=== PATIENT | female | born 1980 | race Caucasian/White ===

== ENCOUNTER 2016-12-26 11:25 | Emergency (ER) | payer OTHER ==
[2016-12-26 12:27] LABS: % IMMATURE GRANULYOCYTES 0.9 % (0.0-1.1); ABSOLUTE IMMATURE GRANULOCYTES 0.06 10^3/uL (0.00-0.10); ADD DIFF? NO; ADD MORPH? NO; ADD SCAN? NO; ATYPICAL LYMPHOCYTE FLAG 20 (0-99); FRAGMENT RBC FLAG 0 (0-99); HEMATOCRIT 43.8 % (38.0-47.0); HEMOGLOBIN 14.9 g/dL (12.6-16.3); LEFT SHIFT FLG 0 (0-99); LIPEMIA HEMOLYSIS FLAG 90 (0-99); MEAN CELL HEMOGLOBIN 31.4 pg (27.9-34.1); MEAN CELL VOLUME 92.4 fL (81.5-99.8); MEAN PLATELET VOLUME 9.4 fL (8.7-11.7); PLATELET CLUMPS FLAG 0 (0-99); PLATELET COUNT 354 10^3/uL (150-400); RED BLOOD CELL COUNT 4.74 10^6/uL (4.18-5.33); RED CELL DISTRIBUTION WIDTH 12.8 % (11.5-15.2)
--- NOTE | 2016-12-26 12:36 | EDPHY ---
H & P Time Seen by Provider: 12/26/16 12:19 HPI/ROS: CHIEF COMPLAINT: Left lower quadrant pain, vaginal bleeding HISTORY OF PRESENT ILLNESS: 36-year-old female presents with left lower quadrant pain and vaginal bleeding. Onset of intermittent sharp and stabbing left lower quadrant pain yesterday. The pain is mild to moderate. No known alleviating or aggravating factors. Associated with onset of mild vaginal bleeding 1 hour ago. Last normal menstrual period was 2 weeks ago. No prior history of ovarian cysts. REVIEW OF SYSTEMS: Constitutional: No fever, no chills Eyes: No visual changes ENT: No sore throat Respiratory: No cough, no shortness of breath Cardiac: No chest pain Gastrointestinal: No nausea, no vomiting Genitourinary: No hematuria, no dysuria Musculoskeletal: No leg pain or swelling Skin: No rash Neurological: No headache, no weakness Psychiatric: No depression Past Medical/Surgical History: Cholecystectomy Paranoid thought disorder Social History: Single Smoking Status: Never smoked Physical Exam: General Appearance: Alert, very anxious Eyes: Pupils equal and round, no conjunctival pallor or injection ENT, Mouth: Mucous membranes moist Neck: Normal inspection Respiratory: Lungs are clear to auscultation Cardiovascular: Regular rate and rhythm Gastrointestinal: Abdomen is soft, left lower quadrant tenderness Neurological: A&O, nonfocal, normal gait Skin: Warm and dry, no rash Extremities: Nontender, no pedal edema Psychiatric: anxious Constitutional: Initial Vital Signs Temperature (C) 36.5 C 12/26/16 11:35 Heart Rate 60 12/26/16 11:35 Respiratory Rate 18 12/26/16 11:35 Blood Pressure 118/71 12/26/16 11:35 O2 Sat (%) 98 12/26/16 11:35 O2 Delivery Mode Room Air Allergies/Adverse Reactions: No Known Allergies Allergy (Verified 12/26/16 11:34) Home Medications: Medication Instructions Recorded Ibuprofen [Motrin (*)] 400 mg PO DAILY PRN 01/22/15 Thyroid [[place] Thyroid 60 MG (*)] 30 mg PO DAILY10 01/22/15 Bcp 12/26/16 Medical Decision Making - Diagnostics Imaging Results: Imaging Impressions Pelvic/Renal Ultrasound 12/26/16 12:33 Impression: Normal pelvic ultrasound. Results called and discussed with Dr. Sonia Goff, on December 26, 2016 at 1353 hours. ED Course/Re-evaluation: This patient presents with left lower quadrant pain, concerning for possible ectopic versus ovarian torsion. Stat test is negative. Stat pelvic ultrasound is also normal. There is no evidence of ectopic , ovarian torsion, appendicitis or ovarian cyst. Ultrasound results discussed with the patient. She is feeling better. Toradol 30 mg IV given prior to discharge. Abdominal pain precautions given. She will follow up with her primary care physician. Differential Diagnosis: Differential diagnosis includes though it is not limited to ectopic , ovarian cyst, ovarian torsion, PID, UTI, appendicitis. - Data Points Laboratory Results: Laboratory Results 12/26/16 12:11 12/26/16 12/26/16 12/26/16 12:11 12:11 12:02 WBC 6.80 10^3/uL 10^3/uL (3.80-9.50) RBC 4.74 10^6/uL 10^6/uL (4.18-5.33) Hgb 14.9 g/dL g/dL (12.6-16.3) Hct 43.8 % % (38.0-47.0) MCV 92.4 fL fL (81.5-99.8) MCH 31.4 pg pg (27.9-34.1) MCHC 34.0 g/dL g/dL (32.4-36.7) RDW 12.8 % % (11.5-15.2) Plt Count 354 10^3/uL 10^3/uL (150-400) MPV 9.4 fL fL (8.7-11.7) Neut % (Auto) 65.0 % % (39.3-74.2) Lymph % (Auto) 23.5 % % (15.0-45.0) [place] % (Auto) 9.6 % % (4.5-13.0) Eos % (Auto) 0.3 % L % (0.6-7.6) Baso % (Auto) 0.7 % % (0.3-1.7) Nucleat RBC Rel Count 0.0 % % (0.0-0.2) Absolute Neuts (auto) 4.42 10^3/uL 10^3/uL (1.70-6.50) Absolute Lymphs (auto) 1.60 10^3/uL 10^3/uL (1.00-3.00) Absolute Monos (auto) 0.65 10^3/uL 10^3/uL (0.30-0.80) Absolute Eos (auto) 0.02 10^3/uL L 10^3/uL (0.03-0.40) Absolute Basos (auto) 0.05 10^3/uL 10^3/uL (0.02-0.10) Absolute Nucleated RBC 0.00 10^3/uL 10^3/uL (0-0.01) Immature Gran % 0.9 % % (0.0-1.1) Immature Gran # 0.06 10^3/uL 10^3/uL (0.00-0.10) Beta HCG, Qual NEGATIVE Urine Color YELLOW Urine Appearance HAZY Urine pH 5.0 (5.0-7.5) Ur Specific [place] 1.005 (1.002-1.030) Urine Protein NEGATIVE (NEGATIVE) Urine Ketones NEGATIVE (NEGATIVE) Urine Blood 3+ H (NEGATIVE) Urine Nitrate NEGATIVE (NEGATIVE) Urine Bilirubin NEGATIVE (NEGATIVE) Urine Urobilinogen NEGATIVE EU EU (0.2-1.0) Ur Leukocyte Esterase NEGATIVE (NEGATIVE) Urine RBC 50-182 /hpf H /hpf (0-3) Urine WBC 1-3 /hpf /hpf (0-3) Ur Epithelial Cells TRACE /lpf /lpf (NONE-1+) Urine Glucose NEGATIVE (NEGATIVE) Medications Given: Discontinued Medications Ketorolac Tromethamine (Toradol) 30 mg IVP EDNOW ONE Stop: 12/26/16 14:06 Last Admin: 12/26/16 14:15 Dose: 30 mg Departure - Departure Disposition: Home, Routine, Self-Care Clinical Impression: Pelvic pain Condition: Good Instructions: Pelvic Pain in Women (ED) Additional Instructions: Ibuprofen 600 mg 3 times daily while the pain persists. Referrals: Kiana George MD [Primary Care Provider] - As per Instructions
[2016-12-26 13:10] LABS: COLOR YELLOW; LEUKOCYTE ESTERASE,URINE NEGATIVE (NEGATIVE); NITRITE,URINE NEGATIVE (NEGATIVE)
[2016-12-26 13:14] LABS: RBC,URINE 50-182 /hpf (0-3)
[2016-12-26 13:48] VITALS: RESP 20
[2016-12-26] MEDS ORDERED: KETOROLAC 30 MG/1 ML SDV IVP ONE (14:05)
[2016-12-26 14:20] VITALS: BP 97/51; PULSE 80; TEMP 97.9; O2SAT 96
== END 2016-12-26 14:24 | disposition home or self-care (01) ==
DX: R10.2 Pelvic and perineal pain (principal); Z90.49 Acquired absence of other specified parts of digestive tract
CPT/HCPCS: 96374; J1885

== ENCOUNTER 2017-02-10 06:09 | Emergency (ER) | payer OTHER ==
--- NOTE | 2017-02-10 06:33 | EDPHY ---
H & P Stated Complaint: abd pressure, egg retreival on saturday - Personal History LMP (Females 10-55): Over 28 Days Ago Current Tetanus/Diphtheria Vaccine: Yes Current Tetanus Diphtheria and Acellular Pertussis (TDAP): Yes Tetanus Vaccine Date: 2011 - Medical/Surgical History Hx Asthma: No Hx Chronic Respiratory Disease: No Hx Diabetes: No Hx Cardiac Disease: No Hx Renal Disease: No Hx Cirrhosis: No Hx Alcoholism: No Hx HIV/AIDS: No Hx Splenectomy or Spleen Trauma: No Other PMH: gall bladder removal - Social History Smoking Status: Never smoked HPI/ROS: Chief Complaint: Abdominal pain, shortness of breath HPI: 36-year-old woman who is 4 days post egg retrieval at [facility] in [place] by Dr. Guardado. Patient had 46 eggs removed, 32 of those were frozen. She is been getting increasingly distended since the procedure. Pain was worsening yesterday. Last night she started having significant difficulty breathing with shortness of breath in her left chest. Is describing it as long pressure. She spoke with her doctor at the [facility] and was told that she can either take pain medicine or they might have to draining the fluid. ROS: 10 point Review of Systems is negative except as noted in the HPI. PMH: Hypothyroidism Medications: Synthroid Allergies: No known drug allergies Social History: No smoking, no alcohol, no recreational drug use Family History: non-contributory Physical Exam: Gen: Awake, Alert, uncomfortable appearing HEENT: Nose: no rhinorrhea Eyes: PERRLA, EOMI Mouth: Moist mucosa Neck: Supple, no JVD Chest: nontender, lungs clear to auscultation Heart: S1, S2 normal, no murmur Abd: Distended, diffuse guarding Back: no CVA tenderness, no midline tenderness Ext: no edema, non-tender Skin: no rash Neuro: CN II-XII intact, Sensation grossly intact, Strength 5/5 in bilateral upper and lower extremities (Bryce Luna) Constitutional: Initial Vital Signs Temperature (C) 37.1 C 02/10/17 06:13 Heart Rate 100 02/10/17 06:13 Respiratory Rate 20 02/10/17 06:13 Blood Pressure 102/63 02/10/17 06:13 O2 Sat (%) 98 02/10/17 06:13 O2 Delivery Mode Room Air Allergies/Adverse Reactions: No Known Allergies Allergy (Verified 12/26/16 11:34) Home Medications: Medication Instructions Recorded Ibuprofen [Motrin (*)] 400 mg PO DAILY PRN 01/22/15 Thyroid [[place] Thyroid 60 MG (*)] 30 mg PO DAILY10 01/22/15 Bcp 12/26/16 Medical Decision Making - Diagnostics Imaging Results: Imaging Impressions Abdomen CT 02/10/17 07:17 Impression: 1. Large volume ascites in association with bowel wall enhancement multiple bowel loops most pronounced in the pelvis raises the possibility of peritonitis. 2. See above report for additional findings. Results called and discussed with Noé Randolph MD on 02/10/2017 at 9:21 Chest/Thorax CTA 02/10/17 07:17 Impression: 1. No evidence of pulmonary embolic disease. 2. Pleural effusions larger on the right. 3. See above report for additional findings. Results called and discussed with Noé Randolph MD on 02/10/2017 at 9:01 Abdomen Ultrasound 02/10/17 09:58 Impression: 1. Significant amount of ascites. 2. Significant amount of small bowel loops floating within the fluid, which actually makes this procedure higher risk than normal for an ultrasound-guided paracentesis, unless perihepatic region is targeted. 3. None of the visualized bowels are peristalsing, which is abnormal. I will discuss this with Dr. Noé Randolph. A phone call was made to the emergency room, but Dr. Randolph is with a patient at this time. I am awaiting a return phone call from Dr. Randolph. ED Course/Re-evaluation: Care transferred to Dr. Randolph pending lab results and imaging. (Bryce Luna) This patient was turned over to me at shift change. Her CBC has come back with a white blood cell count over 33,000. Believe she has a tender an acute abdomen. I have ordered an abdominal and chest CT scan because she is also complaining of left-sided chest pain and is at risk for pulmonary embolus. Study: CT of the chest abdomen and pelvis with IV contrast Indication: diffuse abdominal and chest pain Results: CT scan of the chest, abdomen, pelvis was obtained. The results of the study are mild sympathetic effusion in the chest. Significant and large amount of ascites throughout the abdomen with enhancing small bowel loops in the pelvis.. The study was read by the radiologist, Dr. Claudy Frazier. I viewed the images myself on the PACS system. Dr. Claudy Frazier does not think there is any evidence of perforation of viscus. There does not appear to be any abnormality of solid organ. This patient just had a ovarian retrieval procedure where a large amount of eggs were extracted. She was told to expect some ascites but this is been much more than she expected and much larger amount in much more pain much more difficulty breathing since she can't really expand her lungs well. Based on the CT findings I have asked Dr. Holbrook to consult. After further investigation it turns out that the ascites is expected can be up to 20 lb according to the patient and her physician. Dr. Holbrook did respond but we have decided to just perform a simple ultrasound-guided paracentesis for comfort for the patient which is what her OB doctor recommends. Procedures been ordered. This patient went to get her paracentesis and then she refused. I talked with Dr. Stacie Valles who was performing the procedure she had the ultrasound ready to go the patient was prepped and draped in the patient said I do not want the procedure. Just spoke to the patient again. The patient essentially has peritoneal signs no peristalsis in her bowels because her [place] [id number]. Although she does not look ill I cannot rule out peritonitis. I have encouraged her to at least be admitted to the hospital so we could further evaluate her. In addition her pain is excruciating she has not been able tolerated home. Patient seems willing to be admitted at this time she is not sure if she wants the procedure will re-consult Dr. Holbrook to see if he wants to do something under anesthesia. Spoke once again with Dr. Holbrook. He does not believe that this is a surgical issue. I then spoke with Dr. Guardado the application systems engineer who did the extraction. She says both than elevated white count, slight electrolyte abnormalities, and large amounts of ascites are expected with this procedure. Consequently she would either perform the paracentesis for comfort only or she would just give the patient pain meds and send her home. We are giving the patient the option. I am also happy to admit her for pain control. There is a significant amount of psychiatric overlay with this patient and she is having difficulty making decisions. After several long discussions with this patient I have offered her numerous options. Firstly, I have offered her admission for pain control. Secondly I have offered her another attempt at paracentesis. In addition, I have offered to increase her oral pain meds and sent her home. Had a long discussion with Dr. Guardado in all of presenting symptoms and lab abnormalities are expected with this procedure. The patient has opted to go home at this point she understands she can return immediately if there are any further problems. This patient is not infected. This patient is not toxic. (Noé Randolph) - Data Points Laboratory Results: Laboratory Results 02/10/17 06:50 02/10/17 06:50 02/10/17 02/10/17 02/10/17 12:25 06:50 06:50 WBC RBC Hgb Hct MCV MCH MCHC RDW Plt Count MPV Neut % (Auto) Lymph % (Auto) [place] % (Auto) Eos % (Auto) Baso % (Auto) Nucleat RBC Rel Count Absolute Neuts (auto) Absolute Lymphs (auto) Absolute Monos (auto) Absolute Eos (auto) Absolute Basos (auto) Absolute Nucleated RBC Immature Gran % Seg Neutrophils % Band Neutrophils % Lymphocytes % Monocytes % Immature Gran # Absolute Seg Neuts Absolute Band Neuts Absolute Lymphocytes Absolute Monocytes RBC/WBC/PLT Morphology Platelet Estimate Smear Review By PT INR APTT D-Dimer 3.51 ug/mLFEU H ug/mLFEU (0.00-0.50) Sodium 129 mEq/L L mEq/L (134-144) Potassium 4.7 mEq/L mEq/L (3.5-5.2) Chloride 98 mEq/L mEq/L (97-110) Carbon Dioxide 19 mEq/l L mEq/l (22-31) Anion Gap 12 mEq/L mEq/L (8-16) BUN 18 mg/dL mg/dL (7-23) Creatinine 1.2 mg/dL H mg/dL (0.6-1.0) Estimated GFR 51 Glucose 119 mg/dL H mg/dL (70-100) Calcium 9.2 mg/dL mg/dL (8.5-10.4) Urine Color Pending Urine Appearance Pending Urine pH Pending Ur Specific [place] Pending Urine Protein Pending Urine Ketones Pending Urine Blood Pending Urine Nitrate Pending Urine Bilirubin Pending Urine Urobilinogen Pending Ur Leukocyte Esterase Pending Urine RBC Pending Urine WBC Pending Ur Epithelial Cells Pending Urine Glucose Pending 02/10/17 02/10/17 06:50 06:48 WBC 33.01 10^3/uL H 10^3/uL (3.80-9.50) RBC 5.43 10^6/uL H 10^6/uL (4.18-5.33) Hgb 17.6 g/dL H g/dL (12.6-16.3) Hct 50.6 % H % (38.0-47.0) MCV 93.2 fL fL (81.5-99.8) MCH 32.4 pg pg (27.9-34.1) MCHC 34.8 g/dL g/dL (32.4-36.7) RDW 12.9 % % (11.5-15.2) Plt Count 368 10^3/uL 10^3/uL (150-400) MPV 9.9 fL fL (8.7-11.7) Neut % (Auto) Not Reported Lymph % (Auto) Not Reported [place] % (Auto) Not Reported Eos % (Auto) Not Reported Baso % (Auto) Not Reported Nucleat RBC Rel Count 0.0 % % (0.0-0.2) Absolute Neuts (auto) Not Reported Absolute Lymphs (auto) Not Reported Absolute Monos (auto) Not Reported Absolute Eos (auto) Not Reported Absolute Basos (auto) Not Reported Absolute Nucleated RBC 0.00 10^3/uL 10^3/uL (0-0.01) Immature Gran % Not Reported Seg Neutrophils % 85 % % Band Neutrophils % 1 % % Lymphocytes % 11 % % Monocytes % 3 % % Immature Gran # Not Reported Absolute Seg Neuts 28.06 10^/uL H 10^/uL (1.70-6.50) Absolute Band Neuts 0.33 10^3/uL 10^3/uL (0.00-0.70) Absolute Lymphocytes 3.63 10^3/uL H 10^3/uL (1.00-3.00) Absolute Monocytes 0.99 10^3/uL H 10^3/uL (0.30-0.80) RBC/WBC/PLT Morphology NORMAL (NORMAL) Platelet Estimate ADEQUATE (ADEQ) Smear Review By Pending PT 13.6 SEC SEC (12.0-15.0) INR 1.05 (0.83-1.16) APTT 26.9 SEC SEC (23.0-38.0) D-Dimer Sodium Potassium Chloride Carbon Dioxide Anion Gap BUN Creatinine Estimated GFR Glucose Calcium Urine Color Urine Appearance Urine pH Ur Specific [place] Urine Protein Urine Ketones Urine Blood Urine Nitrate Urine Bilirubin Urine Urobilinogen Ur Leukocyte Esterase Urine RBC Urine WBC Ur Epithelial Cells Urine Glucose Medications Given: Discontinued Medications Al Hydroxide/Mg Hydroxide (Maalox Susp) 30 ml PO ONCE ONE Stop: 02/10/17 08:44 Last Admin: 02/10/17 08:53 Dose: 30 ml Hydromorphone HCl (Dilaudid) 0.5 mg IVP EDNOW ONE Stop: 02/10/17 06:53 Last Admin: 02/10/17 06:56 Dose: 0.5 mg Hydromorphone HCl (Dilaudid) 0.5 mg IVP EDNOW ONE Stop: 02/10/17 09:32 Last Admin: 02/10/17 09:41 Dose: 0.5 mg Hyoscyamine Sulfate (Levsin, Hyomax-Sl) 0.25 mg PO ONCE ONE Stop: 02/10/17 08:44 Last Admin: 02/10/17 08:53 Dose: 0.25 mg Sodium Chloride (Ns) 1,000 mls @ 3,000 mls/hr IV ONCE ONE Stop: 02/10/17 07:14 Last Admin: 02/10/17 06:56 Dose: 1,000 mls Lidocaine (Lidocaine 2% Viscous) 15 ml PO ONCE ONE Stop: 02/10/17 08:44 Last Admin: 02/10/17 08:53 Dose: 15 ml Ondansetron HCl (Zofran) 4 mg IVP EDNOW ONE Stop: 02/10/17 06:55 Last Admin: 02/10/17 06:55 Dose: 4 mg Departure - Departure Disposition: Home, Routine, Self-Care Clinical Impression: Poorly controlled ascites Abdominal pain Qualifiers: Abdominal location: generalized Qualified Code(s): R10.84 - Generalized abdominal pain Condition: Good Instructions: Ascites (ED) Additional Instructions: Return here if your pain is not well controlled. Follow up with Dr. Guardado in the next 1-2 days. Referrals: Kiana George MD [Primary Care Provider] - As per Instructions
[2017-02-10] MEDS ORDERED: HYDROmorphONE/DILAUDID 1 MG/ML SYR ONE (06:34)
[2017-02-10] MEDS ORDERED: ONDANSETRON 4 MG/2 ML VIAL ONE (06:42)
[2017-02-10] MEDS ORDERED: HYDROmorphONE/DILAUDID 1 MG/ML SYR IVP ONE ×2 (06:52→09:31)
[2017-02-10] MEDS ORDERED: ONDANSETRON 4 MG/2 ML VIAL IVP ONE (06:54)
[2017-02-10] MEDS ORDERED: NS 1,000 ML IV ONE (06:55)
[2017-02-10 07:04] LABS: ADD DIFF? YES; ADD MORPH? NO; ATYPICAL LYMPHOCYTE FLAG 0 (0-99); FRAGMENT RBC FLAG 0 (0-99); HEMATOCRIT 50.6 % (38.0-47.0); HEMOGLOBIN 17.6 g/dL (12.6-16.3); LEFT SHIFT FLG 40 (0-99); LIPEMIA HEMOLYSIS FLAG 90 (0-99); MEAN CELL HEMOGLOBIN 32.4 pg (27.9-34.1); MEAN CELL HEMOGLOBIN CONCENTR. 34.8 g/dL (32.4-36.7); MEAN CELL VOLUME 93.2 fL (81.5-99.8); MEAN PLATELET VOLUME 9.9 fL (8.7-11.7); PLATELET CLUMPS FLAG 0 (0-99); PLATELET COUNT 368 10^3/uL (150-400); RED BLOOD CELL COUNT 5.43 10^6/uL (4.18-5.33); RED CELL DISTRIBUTION WIDTH 12.9 % (11.5-15.2)
[2017-02-10 07:07] LABS: ADD SCAN? NO
[2017-02-10] MEDS ORDERED: IOPAMIDOL (ISOVUE 370) 100 ML BTL IV ONE (07:24)
[2017-02-10 07:25] LABS: ANION GAP 12 mEq/L (8-16); CALCIUM 9.2 mg/dL (8.5-10.4); CARBON DIOXIDE 19 mEq/l (22-31); CHLORIDE 98 mEq/L (97-110); CREATININE 1.2 mg/dL (0.6-1.0); GLOMERULAR FILTRATION RATE 51; GLUCOSE 119 mg/dL (70-100); POTASSIUM 4.7 mEq/L (3.5-5.2); SODIUM 129 mEq/L (134-144)
[2017-02-10 07:40] LABS: PLATELET ESTIMATE ADEQUATE (ADEQ)
[2017-02-10] MEDS ORDERED: MAG HYDROX/AL HYDROX/SIMETH 30 ML UDCUP PO ONE (08:43)
[2017-02-10] MEDS ORDERED: LIDOCAINE 2% VISCOUS 15 ML UDCUP PO ONE (08:43)
[2017-02-10] MEDS ORDERED: HYOSCYAMINE SULFATE 0.125 MG TAB PO ONE (08:43)
[2017-02-10] MEDS ORDERED: LIDOCAINE 1% 300 MG/30 ML SDV ONE (10:18)
[2017-02-10 10:39] LABS: APTT 26.9 SEC (23.0-38.0); INR 1.05 (0.83-1.16); PROTIME(PATIENT) 13.6 SEC (12.0-15.0)
[2017-02-10 11:29] VITALS: RESP 16
[2017-02-10 12:36] VITALS: BP 110/76; PULSE 73; TEMP 97.9; O2SAT 99
== END 2017-02-10 12:48 | disposition home or self-care (01) ==
DX: R18.8 Other ascites (principal)
CPT/HCPCS: 96374; J1170; J2405; Q9967

== ENCOUNTER 2017-02-11 11:07 | Observation (INO) | payer OTHER ==
--- NOTE | 2017-02-11 12:12 | EDPHY ---
H & P Stated Complaint: fluid in abd, " fluid retention." with SOA, seen here yesterday for same HPI/ROS: HPI CHIEF COMPLAINT: Abdominal distention, fluid in abdomen HISTORY OF PRESENT ILLNESS: This patient 36-year-old female, significant past medical history for recent ache retrieval and was recently here in the emergency room yesterday on February 10 with a large amount volume ascites offered paracentesis and offered hospital admission however she declined. She was going to get a therapeutic paracentesis for relief of her abdominal distention and fluid. However right as the procedure was going to start she declined the procedure. She declined hospitalization went home. She now presents back to the emergency room, with worsening abdominal distention. She does complain of abdominal pain diffusely. However on exam she does not have any peritoneal signs and she appears well. She denies nausea vomiting denies fever. Denies chest pain or shortness of breath. She did have shortness of breath yesterday however her shortness of breath tells me she has improved. I did review this patient's recent ER visit extensive workup for shortness of breath and abdominal distention including multiple CT scans and ultrasound. Also reviewed that this patient was going to get a paracentesis however declined and wanted to go home. Declined hospital admission. Past Medical History: Psychosis, thyroid disease, paranoia. Past Surgical History: Recent egg retrieval 46 eggs retrieved and 32 frozen. Social History: Denies daily use of drugs alcohol tobacco products Family History: Noncontributory ROS REVIEW OF SYSTEMS: A comprehensive 10 point review of systems is otherwise negative aside from elements mentioned in the history of present illness. Exam Constitutional triage nursing summary reviewed, vital signs reviewed, awake/ alert. Eyes normal conjunctivae and sclera, EOMI, PERRLA. HENT normal inspection, atraumatic, moist mucus membranes, no epistaxis, neck supple/ no meningismus, no raccoon eyes. Respiratory clear to auscultation bilaterally, normal breath sounds, no respiratory distress, no wheezing. Cardiovascular rate normal, regular rhythm, no murmur, no edema, distal pulses normal. Gastrointestinal abdomen is distended, positive fluid wave, mild tenderness palpation, no guarding or peritoneal signs. Genitourinary no CVA tenderness. Musculoskeletal no midline vertebral tenderness, full range of motion, no calf swelling, no tenderness of extremities, no meningismus, good pulses, neurovascularly intact. Skin pink, warm, & dry, no rash, skin atraumatic. Neurologic awake, alert and oriented x 3, AAOx3, moves all 4 extremities equally, motor intact, sensory intact, CN II-XII intact, normal cerebellar, normal vision, normal speech. Psychiatric normal mood/affect. Heme/Lymph/Immune no lymphadenopathy. Differential Diagnosis: Includes but is not limited to in a particular order large volume ascites from recent egg retrieval, SBP. Medical Decision Making: Plan for this patient I did review her recent ER visit an extensive workup, she is requesting paracentesis here in the emergency room. I will touch base with Interventional Radiology for this. Also will touch base with Dr. Guardado her fertility specialist at [facility]. I will give her IV fluids gentle IV hydration, IV Dilaudid for acute pain control IV Zofran for nausea. Check basic blood work. Re-evaluation: 1316: Spoke with Dr. Guardado with [facility], agrees a paracentesis. Recommends only 2.5 L removed. Recommends checking electrolytes. Does tell me that she should have leukocytosis high as this is expected. She also tells me she has been trying to get a hold this patient for follow-up care over she never answer the phone and does not have a voice mail. She wants me to remind the patient to follow up with them this week. Recommends checking electrolytes as they get low Na, High K with egg retrieval. Does tell me that this amount of ascites expected after egg retrieval. 1416: This patient is hemodynamically stable at this time. Plan for paracentesis. Also plan for admission due to hyponatremia. Sodium noted to be 129 strike currently [address] Echeverria who agrees to admit this patient reason for admission hyponatremia. Patient will 1 have a paracentesis by Dr. Prince with Interventional Radiology and then be admitted to the floor for hyponatremia. Source: Patient - Personal History LMP (Females 10-55): Over 28 Days Ago Current Tetanus/Diphtheria Vaccine: Yes Current Tetanus Diphtheria and Acellular Pertussis (TDAP): Yes Tetanus Vaccine Date: 2011 - Medical/Surgical History Hx Asthma: No Hx Chronic Respiratory Disease: No Hx Diabetes: No Hx Cardiac Disease: No Hx Renal Disease: No Hx Cirrhosis: No Hx Alcoholism: No Hx HIV/AIDS: No Hx Splenectomy or Spleen Trauma: No Other PMH: psh:gall bladder removal, dental. pmh: ROJAS - Social History Smoking Status: Never smoked Constitutional: Initial Vital Signs Temperature (C) 36.3 C 02/11/17 11:15 Heart Rate 75 02/11/17 11:15 Respiratory Rate 16 02/11/17 11:15 Blood Pressure 144/105 H 02/11/17 11:15 O2 Sat (%) 98 02/11/17 11:15 O2 Delivery Mode Room Air Allergies/Adverse Reactions: No Known Allergies Allergy (Verified 12/26/16 11:34) Home Medications: Medication Instructions Recorded Ibuprofen [Motrin (*)] 400 mg PO DAILY PRN 01/22/15 Thyroid [Omega Thyroid 60 MG (*)] 30 mg PO DAILY10 01/22/15 Bcp 12/26/16 HYDROmorphone HCL [Dilaudid 2 mg 2 mg PO Q4-6PRN PRN #14 tab 02/10/17 (*)] Ondansetron Odt [Zofran Odt 4 mg 4 mg PO Q4 PRN #10 tab 02/10/17 (RX)] Medical Decision Making - Data Points Laboratory Results: Laboratory Results 02/11/17 13:00 02/11/17 13:00 02/11/17 02/11/17 13:00 13:00 WBC 27.37 10^3/uL H 10^3/uL (3.80-9.50) RBC 5.04 10^6/uL 10^6/uL (4.18-5.33) Hgb 16.2 g/dL g/dL (12.6-16.3) Hct 47.2 % H % (38.0-47.0) MCV 93.7 fL fL (81.5-99.8) MCH 32.1 pg pg (27.9-34.1) MCHC 34.3 g/dL g/dL (32.4-36.7) RDW 12.8 % % (11.5-15.2) Plt Count 347 10^3/uL 10^3/uL (150-400) MPV 9.7 fL fL (8.7-11.7) Neut % (Auto) Not Reported Lymph % (Auto) Not Reported [place] % (Auto) Not Reported Eos % (Auto) Not Reported Baso % (Auto) Not Reported Nucleat RBC Rel Count 0.0 % % (0.0-0.2) Absolute Neuts (auto) Not Reported Absolute Lymphs (auto) Not Reported Absolute Monos (auto) Not Reported Absolute Eos (auto) Not Reported Absolute Basos (auto) Not Reported Absolute Nucleated RBC 0.00 10^3/uL 10^3/uL (0-0.01) Immature Gran % Not Reported Immature Gran # Not Reported Platelet Estimate Pending Sodium 126 mEq/L L mEq/L (134-144) Potassium 5.2 mEq/L mEq/L (3.5-5.2) Chloride 99 mEq/L mEq/L (97-110) Carbon Dioxide 22 mEq/l mEq/l (22-31) Anion Gap 5 mEq/L L mEq/L (8-16) BUN 19 mg/dL mg/dL (7-23) Creatinine 1.1 mg/dL H mg/dL (0.6-1.0) Estimated GFR 57 Glucose 77 mg/dL mg/dL (70-100) Calcium 8.5 mg/dL mg/dL (8.5-10.4) Medications Given: Discontinued Medications Hydromorphone HCl (Dilaudid) 0.5 mg IVP EDNOW ONE Stop: 02/11/17 12:27 Last Admin: 02/11/17 13:05 Dose: 0.5 mg Sodium Chloride (Ns) 1,000 mls @ 0 mls/hr IV ONCE ONE PRN Reason: Wide Open Stop: 02/11/17 12:27 Last Admin: 02/11/17 13:00 Dose: 1,000 mls Ondansetron HCl (Zofran) 4 mg IVP EDNOW ONE Stop: 02/11/17 12:27 Last Admin: 02/11/17 13:00 Dose: 4 mg Departure - Departure Disposition: Home, Routine, Self-Care Clinical Impression: Hyponatremia Ascites Qualifiers: Ascites type: other type Qualified Code(s): R18.8 - Other ascites Condition: Good Referrals: Kiana George MD [Primary Care Provider] - As per Instructions
[2017-02-11] MEDS ORDERED: ONDANSETRON 4 MG/2 ML VIAL IVP ONE (12:26)
[2017-02-11] MEDS ORDERED: HYDROmorphONE/DILAUDID 1 MG/ML SYR IVP ONE (12:26)
[2017-02-11] MEDS ORDERED: NS 1,000 ML IV ONE (12:26)
[2017-02-11 13:33] LABS: ANION GAP 5 mEq/L (8-16); CALCIUM 8.5 mg/dL (8.5-10.4); CARBON DIOXIDE 22 mEq/l (22-31); CHLORIDE 99 mEq/L (97-110); CREATININE 1.1 mg/dL (0.6-1.0); GLOMERULAR FILTRATION RATE 57; GLUCOSE 77 mg/dL (70-100); POTASSIUM 5.2 mEq/L (3.5-5.2); SODIUM 126 mEq/L (134-144)
[2017-02-11] MEDS ORDERED: LIDOCAINE 1% 300 MG/30 ML SDV ONE (15:16)
[2017-02-11 16:48] LABS: ADD DIFF? YES; ADD MORPH? NO; ADD SCAN? NO; ATYPICAL LYMPHOCYTE FLAG 0 (0-99); FRAGMENT RBC FLAG 0 (0-99); LEFT SHIFT FLG 40 (0-99); LIPEMIA HEMOLYSIS FLAG 90 (0-99); MEAN CELL HEMOGLOBIN 32.1 pg (27.9-34.1); MEAN CELL HEMOGLOBIN CONCENTR. 34.1 g/dL (32.4-36.7); MEAN CELL VOLUME 94.2 fL (81.5-99.8); MEAN PLATELET VOLUME 9.9 fL (8.7-11.7); PLATELET CLUMPS FLAG 10 (0-99); PLATELET COUNT 314 10^3/uL (150-400); RED BLOOD CELL COUNT 4.67 10^6/uL (4.18-5.33); RED CELL DISTRIBUTION WIDTH 12.9 % (11.5-15.2)
[2017-02-11 16:59] LABS: GLUCOSE, PERITONEAL FLUID 93 mg/dL (55-113)
[2017-02-11 17:00] LABS: LD, PERITONEAL FLUID 219 IU/L
[2017-02-11] MEDS ORDERED: NS 1,000 ML IV SCH (17:30)
[2017-02-11 17:34] LABS: PLATELET ESTIMATE ADEQUATE (ADEQ)
[2017-02-11] MEDS ORDERED: ONDANSETRON 4 MG/2 ML VIAL IVP PRN (17:38)
--- NOTE | 2017-02-11 18:38 | GHP ---
[f rep st] HISTORY AND PHYSICAL DATE OF ADMISSION: 02/11/2017 CHIEF COMPLAINT: Abdominal distention and shortness of breath. HISTORY: The patient is a 36-year-old female, who is 5 days status post egg retrieval at [facility] in [place] with Dr. Guardado. Forty-six eggs were harvested. She presented to [facility] emergency room yesterday with increasing abdominal distention and pain and was found to have ascit es. She has shortness of breath. The case was discussed with her fertility specialist, Dr. Guardado, who felt all of this was a known complication of this procedure including the ascites, leukocytosis and electrolyte abnormalities. Paracentesis was recommended but she refused it yesterday and went h ome. She now re-presents to the hospital today with ongoing symptoms. She has abdominal distention with pain and shortness of breath. She is pushing water, drinking 6-8 glasses of water per day as advised by Dr. Guardado. She is now status post paracentesis. She went straight to radiology from the ER. She feels much better already and shortness of breath is resolved. There has been no fever. PAST MEDICAL HISTORY: 1. Hypothyroidism. 2. Infertility. 3. Previous paranoia and psychosis. PAST SURGICAL HISTORY: Cholecystectomy. MEDICATIONS: Please see computer record for full detailed list. ALLERGIES: No known drug allergies. SOCIAL HISTORY: No smoking. No alcohol. She lives with her partner, they are currently trying to conceive. REVIEW OF SYSTEMS: Complete review of systems obtained. Review of systems negative on constitution al, HEENT, GI, pulmonary, cardiovascular, , hematology, skin, musculoskeletal, endocrine, psychiat radha except for positives/negatives as listed in HPI. FAMILY HISTORY: Reviewed and noncontributory to presenting complaint. PHYSICAL EXAMINATION: GENERAL: Well-developed, well-nourished female in no acute distress. VITAL SIGNS: Temperature is 36.3, pulse 86, blood pressure 92/57, saturating 93% on room air. HEENT: No rmal conjunctivae. Pupils react to light. ENT: Normal ears and nose. Hearing intact. Normal luc th. Oropharynx moist. NECK: Trachea midline. No thyromegaly. CHEST: Normal respiratory effort. LUNGS: Clear to auscultation bilaterally. CARDIOVASCULAR: Regular rhythm. EXTREMITIES: No low er extremity edema. ABDOMEN: Soft. No tense ascites status post paracentesis. Diffuse tender to palpation. No hepatosplenomegaly. SKIN: Warm, dry, intact. No rash. MUSCULOSKELETAL: No cyanos is or clubbing. Strength 5/5 upper and lower extremities. NEURO: Cranial nerves intact. Normal s ensation to light touch. PSYCH: Alert and oriented x3. Normal mood and affect. Normal judgment. Normal insight. Normal memory. LABORATORY DATA: White count 22.67, hematocrit 44, platelets 314. Sodium 126, potassium 5.2, chlor sirisha 99, bicarb 22, BUN 5, creatinine 1.1, glucose 77. A CT scan done yesterday showed large volume ascites. Findings consistent with possible peritonitis . Bilateral pleural effusions, larger on the right than the left. No pulmonary embolus. This case was discussed with Dr. Islas, emergency room provider. He did arrange for paracentesis w hich was done from the ER. ASSESSMENT AND PLAN: 1. Ascites. Status post egg retrieval, status post paracentesis. Her ascitic fluid studies are no w coming back and are consistent with a possible peritonitis. She has 914 white cells with 93% neut rophils. The fluid was red and cloudy. I will treat her with IV cefotaxime but I would discuss wit h Dr. Guardado again in the morning whether not this can all be anticipated after this procedure and wh ether or not these findings are outside of the realm of normal. Will insure that the fluid is sent off for culture. 2. Hyponatremia. She has been pushing water 8 glasses per day. I have advised her instead to rest rict fluid. We will check her urine osms and urine sodium. We will check a morning TSH and cortiso l. 3. Bilateral pleural effusions. This is clearly coming from her ascites. Her shortness of breath is now improved after paracentesis. CTA has been done and negative for PE. 4. Hypothyroidism. Will continue her [place] Thyroid. Check TSH in the morning. CODE STATUS: Full. ADMISSION STATUS: Will admit to observation. Depending on clinical progress, it will determine the length of admission necessary. DVT prophylaxis. She is low risk. She will be ambulated early. /[id number]/MODL
[2017-02-11] MEDS: cefTRIAXone 2 GM in D5W 50 ML IV SCH (19:06)
[2017-02-11] MEDS: HYDROmorphONE/DILAUDID 2 MG TAB PO PRN (19:21)
[2017-02-11] MEDS ORDERED: *PHM DO NOT USE-CEFOTAXIME 40 MG/ML IV NEWBORN SYR IV SCH (22:00)
[2017-02-12 05:46] LABS: ADD DIFF? YES; ADD MORPH? NO; ADD SCAN? NO; ATYPICAL LYMPHOCYTE FLAG 0 (0-99); FRAGMENT RBC FLAG 0 (0-99); HEMATOCRIT 39.4 % (38.0-47.0); HEMOGLOBIN 13.6 g/dL (12.6-16.3); LEFT SHIFT FLG 40 (0-99); LIPEMIA HEMOLYSIS FLAG 90 (0-99); MEAN CELL HEMOGLOBIN 32.4 pg (27.9-34.1); MEAN CELL HEMOGLOBIN CONCENTR. 34.5 g/dL (32.4-36.7); MEAN CELL VOLUME 93.8 fL (81.5-99.8); MEAN PLATELET VOLUME 9.5 fL (8.7-11.7); PLATELET CLUMPS FLAG 0 (0-99); PLATELET COUNT 298 10^3/uL (150-400); RED CELL DISTRIBUTION WIDTH 13.1 % (11.5-15.2)
[2017-02-12 06:17] LABS: ANION GAP 1 mEq/L (8-16); CALCIUM 7.9 mg/dL (8.5-10.4); CARBON DIOXIDE 21 mEq/l (22-31); CHLORIDE 104 mEq/L (97-110); CREATININE 0.9 mg/dL (0.6-1.0); GLOMERULAR FILTRATION RATE > 60; GLUCOSE 73 mg/dL (70-100); SODIUM 126 mEq/L (134-144)
[2017-02-12 06:18] LABS: PLATELET ESTIMATE ADEQUATE (ADEQ)
[2017-02-12 06:43] LABS: CORTISOL-AM 10.6 ug/dL (4.5-22.7)
[2017-02-12] MEDS: cefTRIAXone 2 GM in D5W 50 ML IV SCH (09:06)
[2017-02-12] MEDS: HYDROmorphONE/DILAUDID 2 MG TAB PO PRN ×2 (09:07→19:21)
[2017-02-12] MEDS: ACETAMINOPHEN 325 MG TAB PO PRN (10:47)
[2017-02-12] MEDS: THYROID 60 MG TAB PO SCH (10:47)
--- NOTE | 2017-02-12 14:55 | HOSPPROG ---
Hospitalist Progress Note Assessment/Plan: patient is a 36 y/o female who is s/p egg retrieval. She developed abdominal pain and distention and came to the ER for futher evaluation. *abdominal distention/ascites s/p paracentesis w 2400 ml of fluid removed *concern for peritonitis on 2 gm Ceftriaxone w elevated wbc count, asked ID to get involved *hyponatremia had been drinking quite a bit of H20 urine Na 32, urine osmol 118 TSH and cortisol ok will recheck in a.m. encouraged more solute intake *Plan: appreciate Dr Michael. She will need another midnight stay to evaluate labs and micro in the morning/ if improved, can likely be dc. Subjective: Lena is feeling fine/ has some c/o abd fullness. Objective: Vital Signs Temp Pulse Resp BP Pulse Ox 37.0 C 75 16 105/52 L 92 02/12/17 11:49 02/12/17 11:49 02/12/17 11:49 02/12/17 11:49 02/12/17 11:49 Microbiology 02/11/17 15:50 Gram Stain - Final Peritoneal Fluid - Other Laboratory Results 02/12/17 05:11 02/12/17 05:11 02/11/17 02/12/17 02/13/17 05:59 05:59 05:59 Intake Total 1700 Balance 1700 - Physical Exam Constitutional: no apparent distress, appears nourished, not in pain Eyes: PERRL Ears, Nose, Mouth, Throat: hearing normal Cardiovascular: regular rate and rhythym Respiratory: no respiratory distress Gastrointestinal: normoactive bowel sounds, distension (slight) Skin: warm, normal color Musculoskeletal: no muscle tenderness Neurologic: AAOx3 Psychiatric: interacting appropriately, not anxious ICD10 Worksheet Patient Problems: Problems Problem Status Onset Ascites Acute Hyponatremia Acute Psychosis Acute 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
--- NOTE | 2017-02-12 15:07 | GCON ---
[f rep st] CONSULTATION INFECTIOUS DISEASE CONSULTATION DATE OF CONSULTATION: 02/12/2017 REFERRING PHYSICIAN: Jocelyn Boland NP REASON FOR CONSULTATION: Possible peritonitis after oocyte retrieval procedure. CHIEF COMPLAINT: Abdominal pain. HISTORY OF PRESENT ILLNESS: This is a 36-year-old, female with a past medical history sig nificant for hypothyroidism, peritonitis, psychosis who underwent a recent oocyte retrieval procedur e at the [facility] in [place] on February 06, 2017. She states that after that she was instructed to take doxycycline 100 mg once a day for 4 days which would have completed on ay. Progressively, after the procedure, she started having increasing abdominal pain and distention . She also is starting to have some shortness of breath. She came into the ER on February 10 due to ab dominal pain and, at that time, was noted to have a white blood cell count 33,000. She was afebrile at the time. She did have an abdominal CT done at the time which showed large volume ascites in as sociation with bowel wall enhancement with multiple bowel loops suggesting possibility of peritoniti s, no free air, no perforated viscus noted. The patient also had a CT of the chest done which showe d no evidence of a pulmonary emboli. She had pleural effusions noted, larger on the right. The pat ient refused to have paracentesis and went home but came back the next day due to increasing abdomin al pain. Paracentesis was done, and 2400 mL of serosanguineous ascites was removed and sent for wilton lysis and culture. The fluid appeared cloudy red with 914 WBCs, 40,315 peritoneal RBCs, 93% neutrop hils with an LDH of 219 and peritoneal amylase of less than 30. Paracentesis showed no organisms, a nd cultures are currently pending. Patient was started on ceftriaxone. When she came back in for a dmission, her white blood cell count had already come down from 32,000 to 22,000 without any additio nal antibiotics that could be noted. Today it is already down to 17.9 after 1 dose of ceftriaxone. Patient is feeling better today although does continue to have some abdominal distention and some p ain, predominantly left greater than right. She is having some mild shortness of breath but also si gnificantly it is improved compared to the past 2 days. Infectious Disease is now consulted for fur ther evaluation and opinion. REVIEW OF SYSTEMS: GENERAL: Had some low-grade fevers and shaking chills over the past couple of d ays. HEAD: No headaches. EYES: No change in vision. ENT: No sore throat, difficulty swallowing , ear pain, or ear drainage. CARDIOVASCULAR: Denies any chest pain or rapid heart beat. RESPIRATO RY: Some shortness of breath and pain with taking a deep breath. No cough or sputum production. A BDOMEN: Abdominal distention with pain. No vomiting, no diarrhea. : No dysuria or hematuria. BACK: No flank pain or back pain. EXTREMITIES: No lower extremity edema. MUSCULOSKELETAL: No desmond int pains or muscle pain. SKIN: No other rashes or open wounds. Rest of 10-point review of system essentially negative, except for above. PAST MEDICAL HISTORY: Significant for hypothyroidism, infertility, paranoia, psychosis. PAST SURGICAL HISTORY: Significant for cholecystectomy laparoscopically, wisdom teeth removal. ALLERGIES: No known drug allergies. SOCIAL HISTORY: She is a nonsmoker, nondrinker. Lives with her partner. She has no pets, has not traveled outside the country recently. FAMILY HISTORY: Significant for mother having hypothyroidism. PHYSICAL EXAMINATION: VITAL SIGNS: Temperature current 37.0, pulse is 75, blood pressure 105/52, s aturations are 92% on room air. GENERAL: Patient is resting in bed sitting up in no acute respirat ory distress. Awake, alert, and oriented x3. HEENT. Head is normocephalic, atraumatic. Eyes: Pu pils equal, round, reactive to light. No conjunctival injection. No petechiae noted. Oropharynx i s clear. There is no posterior erythema or thrush. CARDIOVASCULAR: S1, S2. Regular rate and rhyt hm. No obvious murmurs appreciated. RESPIRATORY: Coarse breath sounds at the bases bilaterally. ABDOMEN: Positive bowel sounds present. Abdomen is slightly distended. There is some discomfort p articularly in the lower quadrants, left greater than right. Paracentesis site noted in the right l ower quadrant. LOWER EXTREMITIES: Without edema. MUSCULOSKELETAL: No obvious joint effusions or pain on palpation of the joints. SKIN: No obvious rashes or wounds. LABORATORIES: White blood cell count is 17.9, hemoglobin 13.6, platelets are 298, neutrophils 66%, bands are 2%. D-dimer 3.5. INR 1.0. Sodium 126, potassium 5.0, chloride 104, bicarb is 21, BUN is 16, creatinine 0.9, down from 1.2. Beta HCG done 2 months ago was negative. Cortisol a.m. 10.6. TSH 0.76. Urinalysis unremarkable. Urine RBCs 1-3. There was 3+ blood, and urine RBCs are 50 to 1 82. Peritoneal fluid as stated above. Microbiology as stated above. IMAGING: Results have all been reviewed by me and are stated above. ASSESSMENT: Status post recent oocyte retrieval procedure now with either infectious peritonitis ve rsus ovarian hyperstimulation syndrome. PLAN: White blood cell count is starting to come down after 1 dose of antibiotics. Patient is curr ently on ceftriaxone which I will continue for now. All cultures are in progress. So far, no organ isms on the Gram stain, and cultures are pending. Patient was previously on doxycycline up until was her last dose. Peritoneal cultures are currently pending. Clinically patient has improv ed after paracentesis. We will continue to monitor her white blood cell count as well as her cultur es and make decisions on her antibiotics thereafter. The above plan was explained to the patient. Lab results and culture results were reviewed with the patient as well. Thank you very much for providing this opportunity to care for your patient in consultation. /[id number]/MODL
[2017-02-13] MEDS: ACETAMINOPHEN 325 MG TAB PO PRN (05:04)
[2017-02-13 05:56] LABS: ADD DIFF? YES; ADD MORPH? NO; ADD SCAN? NO; ATYPICAL LYMPHOCYTE FLAG 0 (0-99); FRAGMENT RBC FLAG 0 (0-99); HEMOGLOBIN 12.8 g/dL (12.6-16.3); LEFT SHIFT FLG 40 (0-99); LIPEMIA HEMOLYSIS FLAG 90 (0-99); MEAN CELL HEMOGLOBIN 32.7 pg (27.9-34.1); MEAN CELL HEMOGLOBIN CONCENTR. 34.6 g/dL (32.4-36.7); MEAN CELL VOLUME 94.4 fL (81.5-99.8); MEAN PLATELET VOLUME 9.6 fL (8.7-11.7); PLATELET CLUMPS FLAG 30 (0-99); PLATELET COUNT 330 10^3/uL (150-400); RED BLOOD CELL COUNT 3.92 10^6/uL (4.18-5.33); RED CELL DISTRIBUTION WIDTH 12.9 % (11.5-15.2)
[2017-02-13 06:19] LABS: PLATELET ESTIMATE ADEQUATE (ADEQ)
[2017-02-13 06:22] LABS: ANION GAP 5 mEq/L (8-16); CALCIUM 8.1 mg/dL (8.5-10.4); CARBON DIOXIDE 22 mEq/l (22-31); CHLORIDE 103 mEq/L (97-110); CREATININE 0.8 mg/dL (0.6-1.0); GLOMERULAR FILTRATION RATE > 60; GLUCOSE 71 mg/dL (70-100); POTASSIUM 4.4 mEq/L (3.5-5.2); SODIUM 130 mEq/L (134-144)
[2017-02-13 07:49] VITALS: BP 107/56; PULSE 74; RESP 16; TEMP 98.3; O2SAT 96
[2017-02-13] MEDS: THYROID 60 MG TAB PO SCH (09:26)
--- NOTE | 2017-02-13 13:14 | PCMIDPN ---
Assessment/Plan: Likely ovarian hyperstimulation syndrome s/p therapeutic paracentesis with removal of 2.4 L of ascitic fluid with symptomatic improvement. Pleural effusion , ascites, leukocytosis, ARF/hypoNa and abdominal pain can all be apart of OHSS. Corrected peritoneal WBC ~850, majority of neutrophils, slight elevation. Cannot calculated SAAG, no peripheral blood albumin. Doubt peritonitis, but difficult to completely exclude as patient received antibiotics prior to peritoneal aspiration. Nonetheless, Peritonitis is an uncommon complication associated with OHSS and oocyte harvesting. Rec: monitoring off antibiotics microbiology 02/11 peritoneal cx: NGTD, gram stain negative Time 15 min >50% time spent with educational and counseling and coordination of care with hospitalists Subjective: feeling much better eating without difficulty Objective: Vital Signs Temp Pulse Resp BP Pulse Ox 36.8 C 74 16 107/56 L 96 02/13/17 07:48 02/13/17 07:48 02/13/17 07:48 02/13/17 07:48 02/13/17 07:48 Microbiology 02/11/17 15:50 Gram Stain - Final Peritoneal Fluid - Other Laboratory Results 02/13/17 05:15 02/13/17 05:15 02/12/17 02/13/17 02/14/17 05:59 05:59 05:59 Intake Total 1700 1000 440 Output Total 2200 Balance 1700 -1200 440 - Physical Exam General Appearance: alert, no apparent distress Respiratory: No accessory muscle use Neuro/Psych: alert, normal mood/affect ICD10 Worksheet Patient Problems: Problems Problem Status Onset Ascites Acute Hyponatremia Acute Psychosis Acute 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
--- NOTE | 2017-02-13 15:10 | GDS ---
[f rep st] DISCHARGE SUMMARY DISCHARGE DIAGNOSES: 1. Likely ovarian hyperstimulation syndrome. 2. Hyponatremia. STUDIES AND PROCEDURES: Paracentesis. CONSULTATIONS: Infectious Disease. PHYSICAL EXAMINATION: GENERAL: The patient is alert. VITAL SIGNS: Afebrile at 36.8. Pulse is 74 . Respiratory rate is 16. Blood pressure is 107/56. She is saturating 96% on room air. I have se en and evaluated the patient on the day of discharge. HOSPITAL COURSE: The patient is a 36-year-old female who presented to the emergency room with compl aints of abdominal pain. She was evaluated and diagnosed with likely ovarian hyperstimulation syndr ome. During this hospitalization, a paracentesis was performed. The patient's symptoms have signif icantly improved. She was treated with Rocephin for potential peritonitis during this hospitalizati on. It is unlikely the patient is suffering from peritonitis and will remain off antibiotics at the time of disposition. Her condition has significantly improved, and she will follow up outside the hospital with her prima doctor. There are no pending studies. I have discussed the patient's disposition with Dr. Jaja Wilcox of Infectious Disease. DISCHARGE MEDICATIONS: Please refer to EMR form. I have not adjusted the patient's previously pres cribed home medications. I have spent greater than 35 minutes in the care, coordination, and management of the patient's disp osition. /[id number]/MODL
== END 2017-02-13 13:35 | disposition home or self-care (01) ==
LOC: INTOOBSV 14:15 → F3E 16:38
PROVIDERS: ADMIT Internal Medicine; ATTEND Internal Medicine
DX: E28.8 Other ovarian dysfunction (principal); E87.1 Hypo-osmolality and hyponatremia; R18.8 Other ascites; J90 Pleural effusion, not elsewhere classified; N97.9 Female infertility, unspecified; E03.9 Hypothyroidism, unspecified; Z86.59 Personal history of other mental and behavioral disorders; Z09 Encounter for follow-up examination after completed treatment for conditions other than malignant neoplasm
CPT/HCPCS: 49083; 96361; 96374; 96375; 99285; G0378; J0696; J1170; J2405

== ENCOUNTER 2017-06-19 23:12 | Emergency (ER) | payer OTHER ==
--- NOTE | 2017-06-20 00:13 | EDPHY ---
H & P Stated Complaint: ETOH and fall with L thumb deformity and L ankle pain/swelling HPI/ROS: HPI CHIEF COMPLAINT: Alcohol intoxication, fall, left thumb injury, left ankle injury HISTORY OF PRESENT ILLNESS: This patient very pleasant 36-year-old female, she presents emergency room after she states she had 3-4 glasses of wine this evening she got intoxicated she states she was sitting on a bar stool in her left leg was numb when she went to get up she fell. She landed with an outstretched hand of her left hand and sustained injury to her left thumb. Additionally she sustained an injury to her left lateral ankle. She presents emergency room by EMS. She denies head strike. Denies LOC. Denies headache or neck pain. Denies chest pain or shortness of breath. Main complaint left thumb pain. , left lateral ankle pain. And swelling. Past Medical History: Migraine headaches Past Surgical History: No recent surgery Social History: Alcohol this evening. Denies illicit drugs or tobacco. Family History: Noncontributory ROS REVIEW OF SYSTEMS: A comprehensive 10 point review of systems is otherwise negative aside from elements mentioned in the history of present illness. Exam Constitutional appears well nontoxic triage nursing summary reviewed, vital signs reviewed, awake/alert. Eyes normal conjunctivae and sclera, EOMI, PERRLA. HENT normal inspection, atraumatic, moist mucus membranes, no epistaxis, neck supple/ no meningismus, no raccoon eyes. Respiratory clear to auscultation bilaterally, normal breath sounds, no respiratory distress, no wheezing. Cardiovascular rate normal, regular rhythm, no murmur, no edema, distal pulses normal. Gastrointestinal soft, non-tender, no rebound, no guarding, normal bowel sounds, no distension, no pulsatile mass. Genitourinary no CVA tenderness. Musculoskeletal no midline vertebral tenderness, full range of motion, no calf swelling, no tenderness of extremities, no meningismus, good pulses, neurovascularly intact. Left hand: Obvious deformity left thumb appears to be dislocated. Neurovascular intact. Left lateral ankle; swelling and tenderness over the left lateral malleolus. Otherwise neurovascular intact. Compartment soft. Good distal pulse. Sensation intact. Skin pink, warm, & dry, no rash, skin atraumatic. Neurologic awake, alert and oriented x 3, AAOx3, moves all 4 extremities equally, motor intact, sensory intact, CN II-XII intact, normal cerebellar, normal vision, normal speech. Psychiatric normal mood/affect. Heme/Lymph/Immune no lymphadenopathy. Differential Diagnosis: Includes but is not limited to in a particular order acute alcohol intoxication, left thumb dislocation, left thumb fracture, ankle fracture, ankle fracture dislocation, soft tissue injury, ankle sprain. Medical Decision Making: Plan for this patient x-ray left hand, thumb, x-ray left ankle Re-evaluation: X-ray reviewed of both left ankle and left thumb.: The left ankle shows left lateral ankle malleolus swelling soft tissue swelling and as well as a possible small chip fracture. The x-ray of the left thumb shows a dislocated thumb. No fracture. 1224AM: Left Thumb Reduction: With gentle for traction I did reduce the left thumb dislocation. She tolerated this well. She has been placed in a thumb splint for comfort and immobilization. Post reduction she is neurovascular intact. Post reduction x-ray of the left thumb shows normal anatomic alignment I do not appreciate any fracture. Patient has been splinted of left thumb for comfort and immobilization till she can follow up with Hand surgery Orthopedics. I did go over return precautions she understands return emergency room she develops worsening pain swelling or any questions or concerns. She understands she needs to follow up with Orthopedics about her hand thumb dislocation, and left ankle fracture. Recommend ice. Immobilization. Anti-inflammatory pain medicine. Return emergency room if worsening pain questions concerns she understands. Source: Patient - Personal History Current Tetanus/Diphtheria Vaccine: Yes Tetanus Vaccine Date: 2011 - Medical/Surgical History Hx Asthma: No Hx Chronic Respiratory Disease: No Hx Diabetes: No Hx Cardiac Disease: No Hx Renal Disease: No Hx Cirrhosis: No Hx Alcoholism: No Hx HIV/AIDS: No Hx Splenectomy or Spleen Trauma: No Other PMH: psh:gall bladder removal, dental. pmh: ROJAS, hypothyroidism - Social History Smoking Status: Never smoked Constitutional: Initial Vital Signs Temperature (C) 37 C 06/19/17 23:21 Heart Rate 75 06/19/17 23:21 Respiratory Rate 18 06/19/17 23:21 Blood Pressure 107/70 06/19/17 23:21 O2 Sat (%) 100 06/19/17 23:21 O2 Delivery Mode Room Air Allergies/Adverse Reactions: No Known Allergies Allergy (Verified 12/26/16 11:34) Home Medications: Medication Instructions Recorded Thyroid [[place] Thyroid 60 MG (*)] 60 mg PO DAILY10 01/22/15 Multivitamins [Multivitamin (*)] 1 each PO DAILY 02/11/17 Medical Decision Making - Diagnostics Imaging Results: Imaging Impressions Hand X-Ray 06/19/17 23:19 Impression: Dislocation first metacarpophalangeal joint. Ankle X-Ray 06/19/17 23:20 Impression: Mild soft tissue swelling over the lateral malleolus indicating the soft tissue injury. Possible subtle nondisplaced avulsion fracture at the tip of the lateral malleolus. - Data Points Medications Given: Discontinued Medications Acetaminophen (Tylenol) 1,000 mg PO EDNOW ONE Stop: 06/20/17 00:26 Last Admin: 06/20/17 00:29 Dose: 1,000 mg Ibuprofen (Motrin) 800 mg PO EDNOW ONE Stop: 06/20/17 00:19 Last Admin: 06/20/17 00:29 Dose: 800 mg Departure - Departure Disposition: Home, Routine, Self-Care Clinical Impression: Thumb dislocation Qualifiers: Encounter type: initial encounter Laterality: left Qualified Code(s): S63.105A - Unspecified dislocation of left thumb, initial encounter Fall Qualifiers: Encounter type: initial encounter Qualified Code(s): W19.XXXA - Unspecified fall, initial encounter Ankle sprain Qualifiers: Encounter type: initial encounter Involved ligament of ankle: other ligament Laterality: left Qualified Code(s): S93.492A - Sprain of other ligament of left ankle, initial encounter Ankle fracture Qualifiers: Encounter type: initial encounter Fracture type: closed Laterality: left Qualified Code(s): S82.892A - Other fracture of left lower leg, initial encounter for closed fracture Condition: Good Instructions: Ankle Fracture (ED), Finger Dislocation (ED) Additional Instructions: 1. Please follow up with Orthopedics about her thumb dislocation as well as her ankle fracture. 2. Please call their for an appointment. 3. Walking boot for comfort. Crutches to help assist. 4. Ice your injuries. Referrals: NONE *PRIMARY CARE P,. [Primary Care Provider] - As per Instructions Miguelito Vazquez MD [Medical Doctor] - As per Instructions
[2017-06-20] MEDS ORDERED: IBUPROFEN 800 MG TAB PO ONE (00:18)
[2017-06-20] MEDS ORDERED: ACETAMINOPHEN 500 MG TAB PO ONE (00:25)
[2017-06-20 01:23] VITALS: BP 101/63; PULSE 76; RESP 15; TEMP 98.4; O2SAT 94
== END 2017-06-20 01:21 | disposition home or self-care (01) ==
LOC: EDUNIT#
PROC: 0RSXXZZ Reposition Left Finger Phalangeal Joint, External Approach (ICD-10-PCS; principal; 2017-06-19)
DX: S63.105A Unspecified dislocation of left thumb, initial encounter (principal); S93.492A Sprain of other ligament of left ankle, initial encounter; S82.892A Other fracture of left lower leg, initial encounter for closed fracture; W08.XXXA Fall from other furniture, initial encounter; Y92.89 Other specified places as the place of occurrence of the external cause
CPT/HCPCS: L3925; L4386

== ENCOUNTER 2017-09-14 23:21 | Emergency (ER) | payer OTHER ==
--- NOTE | 2017-09-15 00:52 | EDPHY ---
H & P Stated Complaint: ear pain, cough Time Seen by Provider: 09/14/17 23:59 HPI/ROS: Chief complaint: Cold symptoms, trouble sleeping History of present illness: This is a 37-year-old female who presents to the emergency department for cold symptoms. She is also concerned she is having persistent trouble sleeping. She states she has been sick over the last week. She reports tactile fevers, ear pain and pressure, sore throat, cough, chest congestion and diffuse body aches. She was seen by her primary care doctor who clinically diagnosed her with influenza and started her on Tamiflu which she is taking. She followed up with an urgent care he was instructed on symptomatic care. However she continues to feel poorly. In addition she states she has not slept at all for the last 3 weeks. She denies other associated signs or symptoms. Review of systems: A 10 point review of systems was obtained and other than described above was negative - Personal History LMP (Females 10-55): Now Tetanus Vaccine Date: 2011 - Medical/Surgical History Hx Asthma: No Hx Chronic Respiratory Disease: No Hx Diabetes: No Hx Cardiac Disease: No Hx Renal Disease: No Hx Cirrhosis: No Hx Alcoholism: No Hx HIV/AIDS: No Hx Splenectomy or Spleen Trauma: No Other PMH: psh:gall bladder removal, dental. pmh: ROJAS, hypothyroidism - Social History Smoking Status: Never smoked - Physical Exam Exam: General Appearance: Alert, nontoxic. Eyes: Pupils equal and round no pallor or injection. ENT, Mouth: Mucous membranes moist. Tympanic membranes are erythematous and edematous. Questionable perforation of the left tympanic membrane. external auditory canals, external ears and surrounding soft tissue including over the mastoids are unremarkable. Nasopharynx is not injected. There is no rhinorrhea. Oropharynx is injected. There is no edema. There is no exudate. There is no asymmetry. The uvula is midline. No elevation of the tongue. There is no hoarseness, no drooling, no trismus, no stridor. Patient is talking in a whisper. Respiratory: There are no retractions, lungs are clear to auscultation. Cardiovascular: Regular rate and rhythm. Neurological: Alert and oriented x4. Strength and sensation intact and symmetrical. No meningismus. Skin: Warm and dry, no rashes. Musculoskeletal: Neck is supple non tender. Extremities are symmetrical, full range of motion. Psychiatric: Patient is oriented X 3, there is no agitation. Constitutional: Initial Vital Signs Temperature (C) 36.9 C 09/14/17 23:25 Heart Rate 85 09/14/17 23:25 Respiratory Rate 20 09/14/17 23:25 Blood Pressure 110/87 H 09/14/17 23:25 O2 Sat (%) 97 09/14/17 23:25 O2 Delivery Mode Room Air Allergies/Adverse Reactions: No Known Allergies Allergy (Verified 09/14/17 23:23) Home Medications: Medication Instructions Recorded Thyroid [[place] Thyroid 60 MG (*)] 60 mg PO DAILY10 01/22/15 Multivitamins [Multivitamin (*)] 1 each PO DAILY 02/11/17 Amoxicillin/Clavulanate Pot 875 mg PO BID #19 tab 09/15/17 [Augmentin 875 MG TAB (*)] Codeine/Promethazine [Phenergan W/ 5 ml PO Q6H #120 ml 09/15/17 Codeine Syrup] Medical Decision Making - Diagnostics Imaging: I viewed and interpreted images myself ED Course/Re-evaluation: Patient seen under the supervision of my secondary supervising physician Dr. Shantanu Gibbs. Patient presents to the emergency department for persistent cold symptoms. I do believe he is likely suffering from a viral syndrome. Chest x-ray is negative. However I am concerned for developing secondary otitis media, evidence of developing perforation. I will place her on antibiotics. Symptomatic care is discussed including the use of prescription medications. She is to follow up with her primary care doctor this week for recheck as well as discussion of other problems including insomnia. Strict return precautions are given. Differential Diagnosis: Included but not limited to otitis media, sinusitis, pharyngitis, bronchitis, pneumonia, influenza - Data Points Medications Given: Discontinued Medications Amoxicillin/Clavulanate Potassium (Augmentin 875mg) 875 mg PO EDNOW ONE PRN Reason: Protocol Stop: 09/15/17 00:54 Last Admin: 09/15/17 01:10 Dose: 875 mg Dexamethasone (Decadron) 10 mg PO EDNOW ONE Stop: 09/15/17 01:03 Last Admin: 09/15/17 01:08 Dose: 10 mg Departure - Departure Disposition: Home, Routine, Self-Care Clinical Impression: Influenza Otitis media Qualifiers: Otitis media type: unspecified Chronicity: acute Qualified Code(s): H66.90 - Otitis media, unspecified, unspecified ear Condition: Good Instructions: Influenza (ED), Ear Infection (ED) Additional Instructions: Follow-up with primary care doctor this week for recheck Do not combine the cough syrup with other sedative medications If symptoms worsen or new symptoms develop return to the emergency room for recheck Referrals: NONE *PRIMARY CARE P,. [Primary Care Provider] - As per Instructions [facility],. [Clinic] - As per Instructions Libertad Thomas MD [[facility] Primary Care Provider] - As per Instructions Prescriptions: Amoxicillin/Clavulanate Pot [Augmentin 875 MG TAB (*)] 875 mg PO BID #19 tab Codeine/Promethazine [Phenergan W/ Codeine Syrup] 5 ml PO Q6H #120 ml
[2017-09-15] MEDS ORDERED: AMOXICILLIN/CLAVULANATE POT 875/125 MG TAB PO ONE (00:53)
[2017-09-15] MEDS ORDERED: DEXAMETHASONE 4 MG TAB PO ONE (01:02)
[2017-09-15 01:30] VITALS: BP 113/74; PULSE 83; RESP 16; TEMP 98.6; O2SAT 91
== END 2017-09-15 01:28 | disposition home or self-care (01) ==
DX: J11.1 Influenza due to unidentified influenza virus with other respiratory manifestations (principal); H66.90 Otitis media, unspecified, unspecified ear

== ENCOUNTER 2017-11-28 01:09 | Emergency (ER) | payer OTHER ==
[2017-11-28] MEDS ORDERED: IBUPROFEN 600 MG TAB PO ONE (02:30)
[2017-11-28] MEDS ORDERED: ACETAMINOPHEN 500 MG TAB PO ONE (02:30)
[2017-11-28] MEDS ORDERED: SUMAtriptan 6 MG/0.5 ML VIAL SC ONE (02:30)
--- NOTE | 2017-11-28 03:59 | EDPHY ---
H & P Stated Complaint: "eye spasms" with "nerve damage" no visual changes Time Seen by Provider: 11/28/17 02:01 HPI/ROS: HPI The patient presents with concern for left eye injury. She awoke from sleep and noticed that her left eye was hurting her. She feels pain behind her eye which is achy in nature and moderate in severity. She is concerned that she may have torn a ligament in her eye because that is with the pain feels like. She has no changes to her vision, no redness of her eye, no direct trauma. She does not have any photophobia. She does have a history of migraine headaches and thinks that she may have had retro-orbital pain before. She does have a stye of her left eye that has been present for the last 5 days, however she feels this is unrelated. She does not have any nausea or vomiting.. REVIEW OF SYSTEMS Constitutional: No fever, no chills. Eyes: No discharge. ENT: No sore throat. Cardiovascular: No chest pain, no palpitations. Respiratory: No cough, no shortness of breath. Gastrointestinal: No abdominal pain, no vomiting. Genitourinary: No hematuria. Musculoskeletal: No back pain. Skin: No rashes. Neurological: No headache. PMHx: History of headaches Soc Hx: Housed PHYSICAL General Appearance: Alert, no distress Eyes: Left upper eyelid is slightly erythematous with hordeolum present, conjunctiva are clear, extraocular movements are full, Pupils equal and round no pallor or injection ENT, Mouth: Mucous membranes moist Respiratory: There are no retractions, lungs are clear to auscultation Cardiovascular: Regular rate and rhythm Gastrointestinal: Abdomen is soft and non-tender, no masses, bowel sounds normal Neurological: A&O, cranial nerves 2-12 intact, moves all extremities Skin: Warm and dry, no rashes Musculoskeletal: Neck is supple non tender Extremities: symmetrical, full range of motion Psychiatric: Patient is oriented X 3, there is no agitation Source: Patient Exam Limitations: No limitations - Personal History LMP (Females 10-55): 15-21 Days Ago Tetanus Vaccine Date: 2011 - Medical/Surgical History Hx Asthma: No Hx Chronic Respiratory Disease: No Hx Diabetes: No Hx Cardiac Disease: No Hx Renal Disease: No Hx Cirrhosis: No Hx Alcoholism: No Hx HIV/AIDS: No Hx Splenectomy or Spleen Trauma: No Other PMH: psh:gall bladder removal, dental. pmh: ROJAS, hypothyroidism - Social History Smoking Status: Heavy smoker Constitutional: Initial Vital Signs Temperature (C) 36.9 C 11/28/17 01:13 Heart Rate 72 11/28/17 01:13 Respiratory Rate 18 11/28/17 01:13 Blood Pressure 117/65 11/28/17 01:13 O2 Sat (%) 97 11/28/17 01:13 O2 Delivery Mode Room Air Allergies/Adverse Reactions: No Known Allergies Allergy (Verified 09/14/17 23:23) Home Medications: Medication Instructions Recorded Thyroid [[place] Thyroid 60 MG (*)] 60 mg PO DAILY10 01/22/15 Multivitamins [Multivitamin (*)] 1 each PO DAILY 02/11/17 Medical Decision Making Differential Diagnosis: This is a 37-year-old female who presents with left-sided retro-orbital pain for the last 1 day associated with hordeolum. She does not have any trauma to the eye, she does have a history of headache and migraine headaches. She does not have any vision changes or conjunctival injection. Her extraocular movements are full. She does not have any fever or any other signs of infection. I have considered retrobulbar hematoma, however I suspect this would be unlikely without any trauma or anticoagulation. I have considered orbital cellulitis, however her erythema is minimal and really only overlying the upper eyelid. I suspect she is having an ocular migraine. In the emergency department, she was treated with sumatriptan, ibuprofen, Tylenol with improvement in her symptoms. She felt much better. She did ask for referral to ophthalmology which I provided her with. - Data Points Medications Given: Discontinued Medications Acetaminophen (Tylenol) 1,000 mg PO EDNOW ONE Stop: 11/28/17 02:31 Last Admin: 11/28/17 02:44 Dose: 1,000 mg Ibuprofen (Motrin) 600 mg PO EDNOW ONE Stop: 11/28/17 02:31 Last Admin: 11/28/17 02:44 Dose: 600 mg Sumatriptan Succinate (Imitrex Sc Injection) 6 mg SC EDNOW ONE Stop: 11/28/17 02:31 Last Admin: 11/28/17 02:44 Dose: 6 mg Departure - Departure Disposition: Home, Routine, Self-Care Clinical Impression: Pain, eye, left, Hordeolum externum left upper eyelid Condition: Good Instructions: [place] (ED) Additional Instructions: Please return to the emergency department if your worse in any way. If your eye pain continues, I have given you follow-up information with the certified registered dental assistant. You can call for an appointment in the next few days. Referrals: Kiana George MD [Primary Care Provider] - As per Instructions Del Ferrera MD [Medical Doctor] - As per Instructions
[2017-11-28 04:15] VITALS: BP 124/74; PULSE 74; RESP 16; TEMP 97.9; O2SAT 96
== END 2017-11-28 04:20 | disposition home or self-care (01) ==
DX: H00.014 Hordeolum externum left upper eyelid (principal); F17.200 Nicotine dependence, unspecified, uncomplicated
CPT/HCPCS: J3030

== ENCOUNTER 2018-02-24 22:40 | Emergency (ER) | payer OTHER ==
--- NOTE | 2018-02-24 22:45 | EDPHY ---
H & P Time Seen by Provider: 02/24/18 22:44 HPI/ROS: HPI CHIEF COMPLAINT: Headache HISTORY OF PRESENT ILLNESS: Patient is a 37-year-old female, she presents emergency room with a headache. Patient states she has a history of migraines. She describes headache as posterior occiput wraps above on top of her vertex of her head and down to her forehead she describes as throbbing. It has been present for 3 hr. It was not sudden onset. It was not thunderclap. States it does feel similar to previous headaches. She did have a glass of wine tonight she states sometimes the wine will trigger her headache. Denies vomiting but does endorse nausea. Does endorse photophobia. Denies neck pain or fever. Denies double vision or blurry vision. Past Medical History: Migraine headaches, thyroid disease Past Surgical History: Gallbladder removal, dental procedure Social History: Denies tobacco use, drug use. Occasional alcohol use did have a glass of wine tonight. Family History: Noncontributory ROS REVIEW OF SYSTEMS: A comprehensive 10 point review of systems is otherwise negative aside from elements mentioned in the history of present illness. Exam Constitutional triage nursing summary reviewed, vital signs reviewed, awake/ alert. Eyes normal conjunctivae and sclera, EOMI, PERRLA. HENT normal inspection, atraumatic, moist mucus membranes, no epistaxis, neck supple/ no meningismus, no raccoon eyes. Respiratory clear to auscultation bilaterally, normal breath sounds, no respiratory distress, no wheezing. Cardiovascular rate normal, regular rhythm, no murmur, no edema, distal pulses normal. Gastrointestinal soft, non-tender, no rebound, no guarding, normal bowel sounds, no distension, no pulsatile mass. Genitourinary no CVA tenderness. Musculoskeletal no midline vertebral tenderness, full range of motion, no calf swelling, no tenderness of extremities, no meningismus, good pulses, neurovascularly intact. Skin pink, warm, & dry, no rash, skin atraumatic. Neurologic nontoxic appearing, normal neurological exam, awake, alert and oriented x 3, AAOx3, moves all 4 extremities equally, motor intact, sensory intact, CN II-XII intact, normal cerebellar, normal vision, normal speech. Psychiatric normal mood/affect. Heme/Lymph/Immune no lymphadenopathy. Includes but is not limited to in a particular order: Tension headache, cluster headache, migraine headache, doubt intracranial bleed, dehydration, electrolyte disturbance, alcohol-induced headache Medical Decision Making: Plan for this patient her neurological exam here in the emergency room is unremarkable. Wall place an IV give her an IV fluid bolus , will grade migraine cocktail to see if this improves her headache. Re- evaluate. Re-evaluation: 0242AM: Patient re-evaluated this time her neurological exam is unremarkable. She states her headache is almost completely gone with a migraine cocktail she rates her pain currently 1/10. She has no focal weakness or numbness or tingling. She reports to me this headache similar to previous headaches. She states she would benefit greatly from the migraine medication we gave her. I do recommend she follows up with primary care doctor. Additionally I prescribed her Fioricet. Additionally she understands return emergency room she develops worsening headache, vomiting, fever. Close follow-up with her doctor. Source: Patient - Personal History Tetanus Vaccine Date: 2011 - Medical/Surgical History Hx Asthma: No Hx Chronic Respiratory Disease: No Hx Diabetes: No Hx Cardiac Disease: No Hx Renal Disease: No Hx Cirrhosis: No Hx Alcoholism: No Hx HIV/AIDS: No Hx Splenectomy or Spleen Trauma: No Other PMH: psh:gall bladder removal, dental. pmh: ROJAS, hypothyroidism - Social History Smoking Status: Heavy smoker Constitutional: Initial Vital Signs Temperature (C) 36.4 C 02/24/18 22:46 Heart Rate 66 02/24/18 22:46 Respiratory Rate 16 02/24/18 22:46 Blood Pressure 104/64 02/24/18 22:46 O2 Sat (%) 98 02/24/18 22:46 O2 Delivery Mode Room Air Allergies/Adverse Reactions: No Known Allergies Allergy (Verified 02/24/18 22:45) Home Medications: Medication Instructions Recorded Thyroid [[place] Thyroid 60 MG (*)] 60 mg PO DAILY10 01/22/15 Multivitamins [Multivitamin (*)] 1 each PO DAILY 02/11/17 Acet/Caffeine/Buta Fioricet 1 each PO Q6 #10 tab 02/25/18 [Fioricet (*)] Medical Decision Making - Data Points Laboratory Results: Laboratory Results 02/24/18 23:05 02/24/18 23:05 02/24/18 02/24/18 23:05 23:05 WBC 7.28 10^3/uL 10^3/uL (3.80-9.50) RBC 4.51 10^6/uL 10^6/uL (4.18-5.33) Hgb 14.5 g/dL g/dL (12.6-16.3) Hct 41.9 % % (38.0-47.0) MCV 92.9 fL fL (81.5-99.8) MCH 32.2 pg pg (27.9-34.1) MCHC 34.6 g/dL g/dL (32.4-36.7) RDW 13.0 % % (11.5-15.2) Plt Count 315 10^3/uL 10^3/uL (150-400) MPV 9.9 fL fL (8.7-11.7) Neut % (Auto) 54.5 % % (39.3-74.2) Lymph % (Auto) 30.9 % % (15.0-45.0) [place] % (Auto) 11.0 % % (4.5-13.0) Eos % (Auto) 0.8 % % (0.6-7.6) Baso % (Auto) 1.4 % % (0.3-1.7) Nucleat RBC Rel Count 0.0 % % (0.0-0.2) Absolute Neuts (auto) 3.97 10^3/uL 10^3/uL (1.70-6.50) Absolute Lymphs (auto) 2.25 10^3/uL 10^3/uL (1.00-3.00) Absolute Monos (auto) 0.80 10^3/uL 10^3/uL (0.30-0.80) Absolute Eos (auto) 0.06 10^3/uL 10^3/uL (0.03-0.40) Absolute Basos (auto) 0.10 10^3/uL 10^3/uL (0.02-0.10) Absolute Nucleated RBC 0.00 10^3/uL 10^3/uL (0-0.01) Immature Gran % 1.4 % H % (0.0-1.1) Immature Gran # 0.10 10^3/uL 10^3/uL (0.00-0.10) Sodium 138 mEq/L mEq/L (135-145) Potassium 4.7 mEq/L mEq/L (3.3-5.0) Chloride 101 mEq/L mEq/L (97-110) Carbon Dioxide 23 mEq/l mEq/l (22-31) Anion Gap 14 mEq/L mEq/L (8-16) BUN 12 mg/dL mg/dL (7-23) Creatinine 0.8 mg/dL mg/dL (0.6-1.0) Estimated GFR > 60 Glucose 82 mg/dL mg/dL (70-100) Calcium 9.5 mg/dL mg/dL (8.5-10.4) Medications Given: Discontinued Medications Dexamethasone (Decadron Injection) 10 mg IVP EDNOW ONE Stop: 02/24/18 23:03 Last Admin: 02/24/18 23:13 Dose: 10 mg Diphenhydramine HCl (Benadryl Injection) 50 mg IVP EDNOW ONE Stop: 02/24/18 23:03 Last Admin: 02/24/18 23:11 Dose: 50 mg Sodium Chloride (Ns) 1,000 mls @ 0 mls/hr IV ONCE ONE; Wide Open PRN Reason: Protocol Stop: 02/24/18 23:03 Last Admin: 02/24/18 23:10 Dose: 1,000 mls Ketorolac Tromethamine (Toradol) 30 mg IVP EDNOW ONE Stop: 02/24/18 23:03 Last Admin: 02/24/18 23:10 Dose: 30 mg Metoclopramide HCl (Reglan Injection) 10 mg IVP EDNOW ONE Stop: 02/24/18 23:03 Last Admin: 02/24/18 23:12 Dose: 10 mg Promethazine HCl (Phenergan) 6.25 mg IVP ONCE ONE Stop: 02/25/18 00:42 Last Admin: 02/25/18 00:55 Dose: Not Given Departure - Departure Disposition: Home, Routine, Self-Care Clinical Impression: Migraine headache Qualifiers: Migraine type: unspecified Status migrainosus presence: without status migrainosus Intractability: not intractable Qualified Code(s): G43.909 - Migraine, unspecified, not intractable, without status migrainosus Condition: Good Instructions: Migraine Headache (ED) Additional Instructions: 1. Please follow up with her primary care doctor. 2. Return emergency room if you have worsening pain questions or concerns. Referrals: NONE *PRIMARY CARE P,. [Primary Care Provider] - As per Instructions Prescriptions: Acet/Caffeine/Buta Fioricet [Fioricet (*)] 1 each PO Q6 #10 tab
[2018-02-24] MEDS ORDERED: METOCLOPRAMIDE 10 MG/2 ML VIAL IVP ONE (23:02)
[2018-02-24] MEDS ORDERED: DEXAMETHASONE 10 MG/ML VIAL IVP ONE (23:02)
[2018-02-24] MEDS ORDERED: KETOROLAC 30 MG/1 ML SDV IVP ONE (23:02)
[2018-02-24] MEDS ORDERED: NS 1,000 ML IV ONE (23:02)
[2018-02-24 23:13] LABS: PLATELET COUNT 315 10^3/uL (150-400)
[2018-02-25] MEDS ORDERED: PROMETHAZINE HCL 25 MG/ML INJ IVP ONE (00:41)
[2018-02-25 03:57] VITALS: BP 92/60
== END 2018-02-25 03:58 | disposition home or self-care (01) ==
DX: G43.909 Migraine, unspecified, not intractable, without status migrainosus (principal); F17.200 Nicotine dependence, unspecified, uncomplicated; E86.9 Volume depletion, unspecified
CPT/HCPCS: 96374; J1100; J1200; J1885; J2765

== ENCOUNTER 2018-08-01 11:04 | Emergency (ER) | payer OTHER ==
--- NOTE | 2018-08-01 11:26 | EDPHY ---
H & P Stated Complaint: ROJAS Time Seen by Provider: 08/01/18 11:26 HPI/ROS: HPI: This is a 38-year-old female who presents with Chief Complaint: Headache. Location: Frontal and base of neck Quality: Pain Duration: 2 days Signs and Symptoms: no fever, no nausea, no vomiting, no photophobia, no noise sensitivity, no neck stiffness, no ear pain, no tinnitus, no nasal congestion, no sinus pressure, no weakness, no radiation, no aura Timing: Acute on chronic Severity: Moderate Context: Patient has a history of migraine followed outpatient by PCP/ Neurology presents with complaints of 2 day history of a headache that is located in her typical presentation in the bilateral frontal region as well as at the base of the neck. She denies worse headache of her life for thunderclap symptoms. She reports that she has not been able to sleep for the last several nights. She reports that she is taking her prescription for migraine medication (Prochlorperazine) and it is not working. She also reports that she feels some left anterior chest discomfort that is nonradiating in nature. Denies diaphoresis, shortness of breath, lower extremity edema, recent foreign travel, fever, cough. Patient denies that this is the worst headache ever life and denies thunderclap symptoms. She reports that she has no sinus congestion, rhinorrhea, postnasal drip, upper respiratory symptoms. Does Not take blood thinners. Denies vision changes and aura. Modifying Factors: See above Comment: ROS: A comprehensive 10 system review of systems is otherwise negative aside from elements mentioned in the history of present illness. MEDICAL/SURGICAL/SOCIAL HISTORY: Medical history: Hypothyroidism, headache. LMP 2-3 weeks ago. Surgical history: gall bladder removal, dental Social history: Smoker. Family history noncontributory. CONSTITUTIONAL: Extremely anxious, middle-aged white female, awake and alert, no obvious distress HEENT: Atraumatic and normocephalic, PERRL, EOMI. Nares patent; no rhinorrhea; no nasal mucosal edema. Tympanic membranes clear. Oropharynx clear, no exudate and moist pink mucosa. Airway patent. No lymphadenopathy. No meningismus. Cardiovascular: Normal S1/S2, regular rate, regular rhythm, without murmur rub or gallop. PULMONARY/CHEST: Symmetrical and nontender. Clear to auscultation bilaterally. Good air movement. No accessory muscle usage. ABDOMEN: Soft, nondistended, nontender, no rebound, no guarding, no peritoneal signs, no masses or organomegaly. No CVAT. EXTREMITIES: 2/2 pulses, strength 5/5, no deformities, no clubbing, no cyanosis or edema. NEUROLOGICAL: no focal neuro deficits. GCS 15. Normal cerebellar testing. Speech normal. Cranial nerves 2-12 grossly intact SKIN: Warm and dry, no erythema. no rash. Good capillary refill. Source: Patient, Old records Exam Limitations: No limitations - Personal History LMP (Females 10-55): 22-28 Days Ago Current Tetanus/Diphtheria Vaccine: Yes Current Tetanus Diphtheria and Acellular Pertussis (TDAP): Yes Tetanus Vaccine Date: 2011 - Medical/Surgical History Hx Asthma: No Hx Chronic Respiratory Disease: No Hx Diabetes: No Hx Cardiac Disease: No Hx Renal Disease: No Hx Cirrhosis: No Hx Alcoholism: No Hx HIV/AIDS: No Hx Splenectomy or Spleen Trauma: No Other PMH: psh:gall bladder removal, dental. pmh: ROJAS, hypothyroidism - Social History Smoking Status: Heavy smoker Constitutional: Initial Vital Signs Temperature (C) 36.6 C 08/01/18 11:23 Heart Rate 96 08/01/18 11:23 Respiratory Rate 16 08/01/18 11:23 Blood Pressure 120/65 08/01/18 11:23 O2 Sat (%) 100 08/01/18 11:23 O2 Delivery Mode Room Air Allergies/Adverse Reactions: No Known Allergies Allergy (Verified 08/01/18 11:22) Home Medications: Medication Instructions Recorded Thyroid [Grayling Thyroid 60 MG (*)] 60 mg PO DAILY10 01/22/15 Multivitamins [Multivitamin (*)] 1 each PO DAILY 02/11/17 Acet/Caffeine/Buta Fioricet 1 each PO Q6 #10 tab 02/25/18 [Fioricet (*)] Prochlorperazine Maleate 08/01/18 Medical Decision Making ED Course/Re-evaluation: Vital signs reviewed and stable. This is a typical migraine pattern for the patient. No signs of meningitis/neurological deficits. She will be given a migraine cocktail consisting 1 L normal saline, IV Ativan 1 mg, IV Toradol 15 mg, IV Benadryl 25 mg Chart review shows that head CT scan was performed on 02/25/2018 and essentially unremarkable. EKG ordered due to complaints of left anterior chest pain my read shows normal sinus rhythm with rate of 72 beats per minute. No acute ischemic changes. I do not believe that her chest pain is cardiac in nature and it is related to her anxiety. HEART score= low risk 1300: Patient has been sleeping for the last 2.5 hr. Reassessed patient reports relief of headache. No neurological deficits. Boyfriend at bedside to drive patient home. Patient will be discharged home with follow-up with her primary care provider. This patient was seen under the supervision of my secondary supervising physician. I evaluated care for this patient independently. Differential Diagnosis: Headache including but not limited to subarachnoid hemorrhage, migraine headache , tension headache and infectious causes such as meningitis, pharyngitis and sinusitis. - Data Points Medications Given: Discontinued Medications Dexamethasone (Decadron Injection) 8 mg IVP EDNOW ONE Stop: 08/01/18 11:52 Last Admin: 08/01/18 12:15 Dose: 8 mg Diphenhydramine HCl (Benadryl Injection) 25 mg IVP EDNOW ONE Stop: 08/01/18 11:53 Last Admin: 08/01/18 12:12 Dose: 25 mg Sodium Chloride (Ns) 1,000 mls @ 3,000 mls/hr IV EDNOW ONE Stop: 08/01/18 12:10 Last Admin: 08/01/18 12:16 Dose: 1,000 mls Ketorolac Tromethamine (Toradol) 15 mg IVP EDNOW ONE Stop: 08/01/18 11:53 Last Admin: 08/01/18 12:14 Dose: 15 mg Lorazepam (Ativan Injection) 1 mg IVP EDNOW ONE Stop: 08/01/18 11:52 Last Admin: 08/01/18 12:13 Dose: 1 mg Departure - Departure Disposition: Home, Routine, Self-Care Clinical Impression: Migraine headache without aura Qualifiers: Status migrainosus presence: without status migrainosus Intractability: not intractable Qualified Code(s): G43.009 - Migraine without aura, not intractable , without status migrainosus Condition: Good Instructions: Migraine Headache (ED) Additional Instructions: Rest as much as possible until you are feeling better. Consume a minimum of 8-10 glasses of water or electrolyte fluid replacement drinks that include Gatorade, Powerade, Pedialyte. Eat a bland diet for the next 48 hours and then slowly advance as tolerated. Take headache medicine as prescribed. Follow-up with primary care provider in the next 3-5 days. Return to the ER immediately if you have progressive headaches, neurologic deficits, gait abnormality, visual disturbance, slurred speech, or any other symptom that concerns you. Referrals: PCP Not In,Dictionary [Medical Doctor] - As per Instructions
[2018-08-01] MEDS ORDERED: NS 1,000 ML IV ONE (11:51)
[2018-08-01] MEDS ORDERED: DEXAMETHASONE 4 MG/ML VIAL IVP ONE (11:51)
[2018-08-01] MEDS ORDERED: LORazepam 2 MG/ML INJ IVP ONE (11:51)
[2018-08-01] MEDS ORDERED: KETOROLAC 15 MG/1 ML SDV IVP ONE (11:52)
[2018-08-01 13:35] VITALS: BP 102/75
--- NOTE | 2018-08-01 14:22 | CPEKG ---
Test Reason : OPEN Blood Pressure : / mmHG Vent. Rate : 072 BPM Atrial Rate : 068 BPM P-R Int : 134 ms QRS Dur : 090 ms QT Int : 398 ms P-R-T Axes : 072 052 035 degrees QTc Int : 436 ms Sinus rhythm Confirmed by Louis Alvarez ([id number]) on 08/01/2018 2:21:47 PM Referred By: Confirmed By:Louis Alvarez
== END 2018-08-01 13:35 | disposition home or self-care (01) ==
DX: G43.009 Migraine without aura, not intractable, without status migrainosus (principal); E03.9 Hypothyroidism, unspecified; F17.200 Nicotine dependence, unspecified, uncomplicated
CPT/HCPCS: 96374; J1100; J1200; J1885; J2060

== ENCOUNTER 2018-09-12 08:55 | Inpatient (IN) | payer OTHER ==
--- NOTE | 2018-09-12 09:32 | EDPHY ---
HPI/HX/ROS/PE/MDM Narrative: CLINICAL IMPRESSION: Insomnia, chest pain, abdominal pain ASSESSMENT/PLAN: 38-year-old female with a significant history of hypothyroidism and erratic behavior in the past who presents to the emergency department complaining of chest pain, abdominal pain and insomnia. Patient is hysterical on arrival stating that somebody punctured her heart and that she has ripped a vein in her left lower abdomen causing her to bleed internally. She is afebrile and not toxic appearing. The patient was placed on rn hospice and and ECG was immediately obtained- revealed normal sinus rhythm without evidence of ischemia ; reviewed by Dr. Patel. Initial troponin undetectable. CBC with no evidence of leukocytosis or significant anemia. BMP with no significant metabolic abnormality or evidence of acute kidney injury. Hepatic panel and Lipase normal. Repeat ECG with no change, no evidence of ischemia and repeat trop negative. Chest x-ray and abdominal series with no acute findings. Pelvic ultrasound without evidence of adnexal mass, abscess or torsion. The patient had an extensive cardiac and abdominal workup that was very reassuring in the emergency department. There were no findings to suggest ACS, PE, infectious process or acute surgical abdomen. On repeat examination and after Ativan the patient reports feeling much better, she only reports very mild left-sided reproducible chest pain and left lower abdominal pain. She was very reassured by her workup in the emergency department. The patient continued to have bizarre behavior, a formal behavioral health consult was initiated. TSH was within normal limits, Tylenol, salicylate and alcohol were negative. Drug screen was negative. There were no findings to suggest clinical intoxication, metabolic abnormality or other toxidrome. Upon formal evaluation the patient was placed on an M1 hold secondary to psychosis and concern for safety, recommendation was for admission to [address] [place] [address]. She will be admitted to Dr. Kline. The patient remained hemodynamically stable while in the emergency department and prior to transfer to [address] [place] [address]. Case, results and plan a care discussed with Dr. Patel. She also evaluated this patient. DIFFERENTIAL DX: Chest pain including but not limited to myocardial ischemia, pulmonary embolus, chest wall pain, pleural inflammation and pulmonary infectious causes. Abdominal pain including but not limited to appendicitis, cholecystitis, gastritis and urinary tract infection. Psychosis including but not limited to chronic psychosis, medication noncompliance, medication side effect, depression and illicit drug use. ED COURSE: 9:35 a.m.: Case discussed with Dr. Patel. 11:00 a.m.: On re-evaluation the patient is resting comfortably in her bed, she appears well appearing and in no acute distress. She states that her pain is much improved. Dr. Patel to evaluate this patient 1455: Patient formally evaluated by [facility], biggest concern is her insomnia. Patient is not gravely disabled and is very reassured by her workup today. Dr. Patel participated in this conversation. CHIEF COMPLAINT: Chest pain, abdominal pain, insomnia HPI: Patient is a 38-year-old female with a significant history of hypothyroidism who presents to the emergency department complaining of chest pain, abdominal pain and insomnia. Patient reports shortly after she woke up this morning she "felt like somebody punctured her heart". The pain has been constant, it is relieved when she presses on it. It does not radiate, she has no associated nausea or diaphoresis. She has never experienced anything like this before. Patient also complains of "internal bleeding" in her left lower abdomen. She states she rolled over onto her left side, she states that she felt something pop and is now bleeding internally. She reports this pain also as sharp in nature, constant and unrelieved. She has not tried taking pain medication for either her chest pain or her left lower abdominal pain. Patient endorses several nights of very little sleep, complains of having night terrors and feeling that they are very real reporting that she feels like people are coming after her. Her boyfriend is present in the room and quietly discloses a history of bizarre, episodic periods of psychotic thinking and paranoid ideation in the past. Patient does have a history of a psychiatric admission several years prior. Patient became very defensive and denied any concerns for her psychiatric health. Patient denies any recent fevers, chills, headache, dizziness or shortness of breath. She has had no urinary symptoms to include dysuria, hematuria or increased frequency. She is currently menstruating which is expected, denies any vaginal discharge or concern for sexually transmitted infections. Bowel movements have been normal and regular. PMH: Hypothyroidism Pertinent Past Surgical History: Remote cholecystectomy Family History: Not contributory Social History: Occasional alcohol, denies illicit drug use, denies cigarette smoking REVIEW OF SYSTEMS: All other systems negative Constitutional: No fever, no chills, appetite change. Eyes: No discharge, vision change ENT: No sore throat, congestion, ear pain. Cardiovascular: Chest pain. No no palpitations. Respiratory: No cough, no shortness of breath. Gastrointestinal: Abdominal pain. No no vomiting, diarrhea. Genitourinary: No hematuria, dysuria, flank pain, pelvic pain Musculoskeletal: No back pain, joint swelling, joint pain, myalgias. Skin: No rashes, color change. Neurological: No headache, dizziness, weakness. PHYSICAL EXAM: General Appearance: Alert, in moderate distress to screaming and crying that somebody has punctured her chest, also clutching her lower abdomen. Not toxic appearing. HENT: Normocephalic, atraumatic. Bilateral external ears are normal. Bilateral tympanic membranes are normal with pearly bess reflex. Nares are clear, mucosa is pink. Oropharynx is clear, uvula is midline. There is no tonsillar enlargement or exudate. The dentition is normal. Eyes: PERRLA, no acute vision change, nystagmus, swelling, discharge, pain or photosensitivity. Conjunctiva pink, no pallor or injection Neck: Supple, nontender, no lymphadenopathy, no midline pain, FROM, no meningismus. Respiratory: There are no retractions, lungs are clear to auscultation. Cardiac: Regular rate and rhythm, no murmurs or gallops. Patient with reproducible anterior left-sided chest pain without evidence of abrasions, contusions or edema Gastrointestinal: Patient's abdomen is soft and nondistended, she is mildly tender in the left lower quadrant without rebound or guarding. Bowel sounds are present. Negative McBurney's point tenderness, negative Rovsing's and negative rebound tenderness. No peritoneal signs or evidence of a surgical abdomen. Neurological: Alert and oriented x 3, CN 2-12 grossly intact, normal gait no ataxia, DTR's intact, normal sensation and strength Skin: Warm, dry, no rashes, no nodules on palpation. Musculoskeletal: Extremities are symmetrical, full range of motion, no tenderness, deformity, swelling, or erythema. Psychiatric: Patient is oriented X 3, affect is labile however easily agitated and inconsolable, poor eye contact. MEDICAL DECISION MAKING: Patient was seen with Dr. Patel. Diagnosis: Psychosis, chest pain, abdominal pain. New, requires workup Summary: See Assessment and Plan for summary of ED visit Clinical lab tests: ordered / reviewed. Independent visualization of images, tracing, or specimens: Yes. Decision to obtain medical records or history from someone other than the patient: Yes, boyfriend. Review / Summarize previous medical records: Yes Discussed patient with another provider: Yes, Dr. Patel Patient Progress: Stable, admit. (Marlen Masterson) MDM: I have evaluated and participated in the management of this patient. My co- signature indicates that I have reviewed this chart and that I agree with the findings and the plan of care as documented. My personal history and physical findings include: At the time of my evaluation the patient received Ativan. She is slightly sleepy but easily awakened. She reported abdominal and chest pain to me. She stated that the abdominal pain was in the lower abdomen and was a stabbing sensation in expressed concern about internal bleeding. Chest pain is improved. She does not feel short of breath. She has not had fever. She does report that she has not been sleeping recently. On exam she is sleepy but arousable. She is oriented to person and place. Lungs are clear to auscultation. Heart has a regular rate and rhythm. Abdomen is soft with some mild tenderness in the left lower quadrant, no guarding or rebound. She had a psychiatric admission about 3 years ago with similar complaints. She denies any suicidality or homicidality. She denies any history of psychiatric illness. I reviewed the laboratory workup and radiographic workup. I have not found a medical explanation for her complaints. Mental health evaluation will be performed. (Doris Patel) - Data Points Imaging Results: Imaging Impressions Abdomen X-Ray 09/12/18 09:31 Impression: No evidence of bowel obstruction. ADDENDUM: 09/12/18 1045 Impression: No acute findings in the chest. Pelvic/Renal Ultrasound 09/12/18 11:23 Impression: Trace free fluid in the pelvis, likely physiologic in premenopausal woman. No acute process. Findings and recommendations discussed with MARIEL Mohan at 1216 hour, 07/2019. Laboratory Results: Laboratory Results 09/12/18 09:48 09/12/18 09:48 09/12/18 09/12/18 09/12/18 12:58 10:00 09:51 WBC RBC Hgb Hct MCV MCH MCHC RDW Plt Count MPV Neut % (Auto) Lymph % (Auto) [place] % (Auto) Eos % (Auto) Baso % (Auto) Nucleat RBC Rel Count Absolute Neuts (auto) Absolute Lymphs (auto) Absolute Monos (auto) Absolute Eos (auto) Absolute Basos (auto) Absolute Nucleated RBC Immature Gran % Immature Gran # Sodium Potassium Chloride Carbon Dioxide Anion Gap BUN Creatinine Estimated GFR Glucose Calcium Total Bilirubin Conjugated Bilirubin Unconjugated Bilirubin AST ALT Alkaline Phosphatase POC Troponin I 0.00 ng/mL ng/mL 0.00 ng/mL ng/mL (0.00-0.08) (0.00-0.08) Total Protein Albumin Lipase TSH Beta HCG, Qual Urine Color YELLOW Urine Appearance CLEAR Urine pH 6.0 (5.0-7.5) Ur Specific [place] 1.023 (1.002-1.030) Urine Protein NEGATIVE (NEGATIVE) Urine Ketones 2+ H (NEGATIVE) Urine Blood 3+ H (NEGATIVE) Urine Nitrate NEGATIVE (NEGATIVE) Urine Bilirubin NEGATIVE (NEGATIVE) Urine Urobilinogen NEGATIVE EU EU (0.2-1.0) Ur Leukocyte Esterase NEGATIVE (NEGATIVE) Urine RBC 50-182 /hpf H /hpf (0-3) Urine WBC 1-3 /hpf /hpf (0-3) Ur Epithelial Cells TRACE /lpf /lpf (NONE-1+) Urine Mucus TRACE /lpf /lpf (NONE-1+) Urine Glucose NEGATIVE (NEGATIVE) Salicylates Urine Opiates Screen NEGATIVE ng/mL ng/mL (NEGATIVE) Acetaminophen Urine Barbiturates NEGATIVE ng/mL ng/mL (NEGATIVE) Ur Phencyclidine Scrn NEGATIVE ng/mL ng/mL (NEGATIVE) Ur Amphetamines Screen NEGATIVE ng/mL ng/mL (NEGATIVE) U Benzodiazepines Scrn NEGATIVE ng/mL ng/mL (NEGATIVE) Urine Cocaine Screen NEGATIVE ng/mL ng/mL (NEGATIVE) U Marijuana (THC) Screen NEGATIVE ng/mL ng/mL (NEGATIVE) Ethyl Alcohol 09/12/18 09/12/18 09/12/18 09:48 09:48 09:48 WBC 8.53 10^3/uL 10^3/uL (3.80-9.50) RBC 4.96 10^6/uL 10^6/uL (4.18-5.33) Hgb 15.9 g/dL g/dL (12.6-16.3) Hct 45.8 % % (38.0-47.0) MCV 92.3 fL fL (81.5-99.8) MCH 32.1 pg pg (27.9-34.1) MCHC 34.7 g/dL g/dL (32.4-36.7) RDW 12.5 % % (11.5-15.2) Plt Count 362 10^3/uL 10^3/uL (150-400) MPV 9.2 fL fL (8.7-11.7) Neut % (Auto) 63.5 % % (39.3-74.2) Lymph % (Auto) 25.4 % % (15.0-45.0) [place] % (Auto) 9.1 % % (4.5-13.0) Eos % (Auto) 0.2 % L % (0.6-7.6) Baso % (Auto) 0.9 % % (0.3-1.7) Nucleat RBC Rel Count 0.0 % % (0.0-0.2) Absolute Neuts (auto) 5.40 10^3/uL 10^3/uL (1.70-6.50) Absolute Lymphs (auto) 2.17 10^3/uL 10^3/uL (1.00-3.00) Absolute Monos (auto) 0.78 10^3/uL 10^3/uL (0.30-0.80) Absolute Eos (auto) 0.02 10^3/uL L 10^3/uL (0.03-0.40) Absolute Basos (auto) 0.08 10^3/uL 10^3/uL (0.02-0.10) Absolute Nucleated RBC 0.00 10^3/uL 10^3/uL (0-0.01) Immature Gran % 0.9 % % (0.0-1.1) Immature Gran # 0.08 10^3/uL 10^3/uL (0.00-0.10) Sodium 138 mEq/L mEq/L (135-145) Potassium 3.9 mEq/L mEq/L (3.5-5.2) Chloride 108 mEq/L mEq/L (97-110) Carbon Dioxide 21 mEq/l L mEq/l (22-31) Anion Gap 9 mEq/L mEq/L (6-14) BUN 12 mg/dL mg/dL (7-23) Creatinine 0.9 mg/dL mg/dL (0.6-1.0) Estimated GFR > 60 Glucose 85 mg/dL mg/dL (70-100) Calcium 9.6 mg/dL mg/dL (8.5-10.4) Total Bilirubin 1.8 mg/dL H mg/dL (0.1-1.4) Conjugated Bilirubin 0.2 mg/dL mg/dL (0.0-0.5) Unconjugated Bilirubin 1.6 mg/dL H mg/dL (0.0-1.1) AST 22 IU/L IU/L (14-46) ALT 21 IU/L IU/L (9-52) Alkaline Phosphatase 83 IU/L IU/L (38-126) POC Troponin I Total Protein 7.9 g/dL g/dL (6.3-8.2) Albumin 4.9 g/dL g/dL (3.5-5.0) Lipase 87 IU/L IU/L (23-300) TSH 2.970 uIU/mL uIU/mL (0.465-4.680) Beta HCG, Qual NEGATIVE Urine Color Urine Appearance Urine pH Ur Specific [place] Urine Protein Urine Ketones Urine Blood Urine Nitrate Urine Bilirubin Urine Urobilinogen Ur Leukocyte Esterase Urine RBC Urine WBC Ur Epithelial Cells Urine Mucus Urine Glucose Salicylates < 1.0 mg/dL L mg/dL (2.0-20.0) Urine Opiates Screen Acetaminophen < 10 mcg/mL L mcg/mL (10-30) Urine Barbiturates Ur Phencyclidine Scrn Ur Amphetamines Screen U Benzodiazepines Scrn Urine Cocaine Screen U Marijuana (THC) Screen Ethyl Alcohol < 10 mg/dL mg/dL (0-10) Medications Given: Discontinued Medications Lorazepam (Ativan Injection) 0.5 mg IVP EDNOW ONE Stop: 09/12/18 10:07 Last Admin: 09/12/18 10:11 Dose: 0.5 mg Point of Care Test Results: Chemistry 09/12/18 09/12/18 12:58 09:51 POC Troponin I 0.00 ng/mL ng/mL 0.00 ng/mL ng/mL (0.00-0.08) (0.00-0.08) General Initial Vital Signs: Initial Vital Signs Temperature (C) 36.8 C 09/12/18 09:16 Heart Rate 74 09/12/18 09:16 Respiratory Rate 16 09/12/18 09:16 Blood Pressure 119/71 09/12/18 09:16 O2 Sat (%) 99 09/12/18 09:16 O2 Delivery Mode Room Air Allergies/Adverse Reactions: No Known Allergies Allergy (Verified 09/12/18 09:15) Home Medications: Medication Instructions Recorded Thyroid [Buchanan Thyroid 60 MG (*)] 60 mg PO DAILY10 01/22/15 Departure - Departure Disposition: [facility] IP Clinical Impression: Insomnia Qualifiers: Insomnia type: unspecified Qualified Code(s): G47.00 - Insomnia, unspecified Psychosis Qualifiers: Psychosis type: unspecified psychosis type Qualified Code(s): F29 - Unspecified psychosis not due to a substance or known physiological condition Chest pain Qualifiers: Chest pain type: other chest pain Qualified Code(s): R07.89 - Other chest pain Abdominal pain Qualifiers: Abdominal location: left lower quadrant Qualified Code(s): R10.32 - Left lower quadrant pain Condition: Fair
[2018-09-12 09:56] LABS: PLATELET COUNT 362 10^3/uL (150-400)
[2018-09-12] MEDS ORDERED: LORazepam 2 MG/ML INJ IVP ONE (10:06)
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
--- NOTE | 2018-09-12 17:37 | ASMTTCLDSP ---
TLC Discharge Disposition Disposition: Answers: Admit Disposition Notes: Notes: In consultation with [facility] ED Physician, Doris Patel MD and on-call assembly line brazer, Miguelito Kline both concurred that pt appears to meet 27-65 criteria regarding psychiatric hospitalization as pt appears to be at risk of harm to self due to a mental illness condition. Pt was given the [facility] prohibited belongings list while in the ED. Discharge Concerns/Recommendations: Notes: Admit to [facility] Was patient given the Answers: Yes Inpatient Behavioral Health Prohibited Belongings List while in the ED? For inpatient Miguelito Kline admission, the following psychiatrist agreed to accept patient for admission to Behavioral Health ([facility]): Type of Hold: Answers: M1/72-hour Hold Hold initiated by: Answers: ED Physician Date Signed: 09/12/2018 05:36 PM Electronically Signed By:Lisa Kidd
[2018-09-12] MEDS ORDERED: LORazepam 1 MG TAB PO ONE (18:02)
[2018-09-12] MEDS ORDERED: MAG HYDROX/AL HYDROX/SIMETH 30 ML UDCUP PO PRN (20:34)
[2018-09-12] MEDS ORDERED: MAGNESIUM HYDROXIDE 30 ML UDCUP PO PRN (20:34)
[2018-09-12] MEDS ORDERED: NICOTINE POLACRILEX 2 MG GUM B PRN (20:34)
[2018-09-12] MEDS ORDERED: LORazepam 0.5 MG TAB PO PRN (20:34)
[2018-09-12] MEDS ORDERED: OLANZapine DISINTEGR 10 MG TAB PO PRN (20:35)
--- NOTE | 2018-09-12 20:52 | CPEKG ---
Test Reason : OPEN Blood Pressure : / mmHG Vent. Rate : 065 BPM Atrial Rate : 065 BPM P-R Int : 120 ms QRS Dur : 086 ms QT Int : 416 ms P-R-T Axes : 061 050 035 degrees QTc Int : 433 ms Sinus rhythm Confirmed by Sonia Goff ([id number]) on 09/12/2018 8:51:52 PM Referred By: Confirmed By:Sonia Goff
--- NOTE | 2018-09-12 20:52 | CPEKG ---
Test Reason : OPEN Blood Pressure : / mmHG Vent. Rate : 054 BPM Atrial Rate : 054 BPM P-R Int : 114 ms QRS Dur : 083 ms QT Int : 447 ms P-R-T Axes : 035 058 054 degrees QTc Int : 424 ms Sinus rhythm Confirmed by Sonia Goff ([id number]) on 09/12/2018 8:51:57 PM Referred By: Confirmed By:Sonia Goff
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
--- NOTE | 2018-09-13 14:35 | ASMTCMCOM ---
CM Note CM Note Notes: Pt and CC completed MTP and placed in pt's chart. Pt. reports sleeping "better" with Ativan and requested a "short-term prescription" of ativan. Pt. reports "feel centered" after the ativan and sleeping well. Pt. stated she has a "brain anurism" and pointed to her left pentecostalism. Pt. reports coming into the hospital for abdominal pain and racing heart. Pt. stated it "felt like something had been clipped" referring to her abdomin and stated she was in so much pain she cried. Pt. stated she feels as though she has a "punture wound to [my] heart". Pt. reports eating well and not attending groups yet. Pt. denied SI, HI, AVH and paranoia. 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 Pt. presents as alert, calm, guarded, good eye contact, cooperative and appearing to lack insight into mental health. Staff report pt. sleeping 9.5 hours and being medication compliant. Date Signed: 09/13/2018 02:34 PM Electronically Signed By:Dee Brown
[2018-09-13] MEDS: THYROID 60 MG TAB PO SCH (15:42)
[2018-09-13] MEDS ORDERED: MELATONIN 3 MG TAB PO PRN (16:07)
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
[2018-09-13] MEDS: LORazepam 0.5 MG TAB PO PRN (18:18)
[2018-09-14] MEDS: THYROID 60 MG TAB PO SCH (09:49)
--- NOTE | 2018-09-14 14:39 | ASMTBHDC ---
Notes Note: Notes: Pt reports feeling "good". Pt. stated she slept "alright. Not as good as the first night". Pt. stated she did take Ativan last night to help her sleep. Pt. stated she plans on circling more options on her menu so she is getting enough to eat. Pt. stated she has "decided not to go to groups", adding she has "been going to art group". Pt. stated she is not attending groups because she feels she has nothing to contribute. Pt. stated she is "ready to discharge tomorrow". Pt. stated she goes to [facility] and sees "Dr. Wolfe". Pt. stated her prescriber has recommended a counselor for the patient to start seeing. CC offered to schedule pt's follow up appointments, but pt declined stating she can schedule them herself. CC requested pt to sign an WILLIE for her partner, Lalit, but pt stated she didn't want to sign it unless it was mandatory for her to sign. Pt. denied SI, HI, AVH and paranoia. Pt. presents as alert, mostly friendly, guarded, possibly responding to internal stimuli, good eye contact and somewhat cooperative. Staff report pt. sleeping 9.5 hours. Date Signed: 09/14/2018 02:39 PM Electronically Signed By:Dee Brown
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
[2018-09-14] MEDS: ACETAMINOPHEN 325 MG TAB PO PRN (18:28)
[2018-09-14] MEDS: LORazepam 0.5 MG TAB PO PRN (20:21)
--- NOTE | 2018-09-15 11:31 | SOAPPROG ---
SOAP Progress Note Assessment/Plan: Assessment: Bipolar I Disorder with mood congruent psychotic features. No improvement noted. (see subjective/objective note). Patient is not safe to discharge at this time as patient continues to exhibit signs of psychosis and chuy, and express psychosis and chuy symptoms. Patient requires continued inpatient care because of current psychosis and chuy, and requires inpatient level of care to stabilize in order to no longer be gravely disabled due to mental illness. Patient is unable to communicate her basic needs, and is unable to test reality. Patient exhibits inability to provide for herself, withdrawn from social interactions, currently shows inability to maintain any appropriate aspect of personal responsibility as an adult, patient becomes agitated and irritable easily and continues exhibited irritable behavior toward staff. Support system has inability to manage functional impairment at lower level of care. Patient could benefit from continued inpatient hospitalization for crisis stabilization, safety, and medication evaluation. Plan: 1. Psychotropic medications: After reviewing options, risks, and benefits patient agrees to continue current medications with following changes: begin trial of Zyprexa Zydis 10 mg po QHS. No other medication changes at this time as more time is needed to determine ongoing tolerability and efficacy. Plan is to continue to observe patient for response and side effects from medications, and ongoing monitoring and evaluation. 2. Review with patient informed consent and recommendations for psychotropic medication treatment listed below 3. Labs: A1c, lipid panel 4. Therapy: continue milieu and group therapy 5. Further investigation including gathering information from patients relatives and review of past case records to inform treatment plan. 6. Safety/Wellness plan and follow-up outpatient appointments to be established prior to discharge. Next steps are for patient to meet with lawn caretaker to plan a safe discharge plan and establish outpatient services for ongoing treatment. 7. Confer with inpatient treatment team regarding treatment plan. 8. Psychosocial stressors addressed through post acute care registered nurse 9. Legal status: M1 hold; will be placed on [facility] today 10. Consider discharge next week if patient is in stable condition, safe, and has a safe discharge plan. PSYCHOTROPIC MEDICATION TREATMENT INFORMED CONSENT and RECOMMENDATIONS: Review nature of condition, diagnosis, and prognosis. Review nature and purpose of psychotropic medication treatment. Review type of psychotropic medications being ordered. Review risk and benefits of psychotropic medication treatment. Review probable length of time patient will need to take medications. Review risk and benefits of not undergoing psychotropic medication treatment. Review alternative treatments to psychotropic medications. Review psychotropic medications contraindications, drug-drug interactions, side effects, and importance of reporting any side effects to a psychiatric provider or nurse during inpatient hospitalization, and upon discharge to patients psychiatric outpatient provider, primary care provider, or other health zoo caretaker. Review importance of asking a nurse, psychiatric provider, or primary care provider any questions or problems concerning the psychotropic medications. Verify patient understands the information that has been provided, and understands, accepts, and agrees to psychotropic medications. Review patients safety plan and importance of patient to report to staff while hospitalized if patient is ever a danger to self/others, or unable to care for self, and upon discharge, the importance for patient to contact [facility] or [facility], or go to the nearest emergency room, if patient is ever a danger to self/others, or unable to care for self. Recommend that upon discharge patient establish medication management treatment with a psychiatric provider, establishes routine therapy appointments, and follow-up with primary care provider. Verify patient understands and agrees to these recommendations. 09/15/18 11:32 Subjective: Following up with patient for evaluation of psychosis and safety. Patient reports, "Went to emergency room with stomach pain and nothing was found. Reported insomnia for several weeks, only sleeping 1-2 hours per night for a month. Before that trouble sleeping, night terrors. Trouble sleeping has been going on for 3-4 years." Patient expresses the following psychiatric symptoms pressure to keep talking and easily distractible. Patient does not report undesirable side effects from the medications, and agrees to continue current medications. Patient describes getting 7 hours of sleep with Ativan PRN. Patient agrees to trial of Zyprexa Zydis 10 mg po QHS. Objective: Vital Signs Temp Pulse Resp BP Pulse Ox 36.9 C 55 L 14 113/57 L 98 09/15/18 06:00 09/15/18 06:00 09/15/18 06:00 09/15/18 06:00 09/15/18 06:00 NURSING REPORT: Consulted with nursing for update on patients progress in treatment. Nurses report patient is not engaged in treatment, is not attending groups, slept 6 hours, expresses the following psychiatric symptoms: anxious, exhibits the following psychiatric symptoms: irritable, withdrawn from social interactions, pressured speech, hypertalkative; is eating all meals, is agreeable to medications and taking as prescribed with no report of side effects , with no s/s of EPS/akathisia, and denies SI/HI, denies A/V hallucinations, and denies delusions. MSE: The patient is a well-nourished female looking stated chronological age. Attire is appropriate dress is casual. Grooming status is inappropriate and disheveled. Ambulation is independent. Gait is normal and coordinated. Posture is normal. Eye contact is inappropriate and staring. Motor activity is appropriate with purposeful, organized, coordinated movements; with no involuntary movements. Attitude is uncooperative, defensive and guarded at times. Patient appears distractible and does not relate well to this interviewer. Language production is spontaneous. Rate is pressured. Latency of response is shortened with irritable tone. Articulation is clear. Patient reports mood as okay with expansive and inappropriate affect. Patients thought process is tangential, non-linear and illogical, and with loose associations. Patient does not report suicidal/homicidal thoughts, ideas, or plans. Patient denies auditory, visual hallucinations. Patient reports somatic delusions. Patient does not appear to be attending to internal stimuli. Patients attention and concentration are poor. Patient is oriented to person, place, and time. Patients insight is poor. Patients judgment is poor. - Time Spent With Patient Time Spent With Patient: 30 minutes, met with patient individually and with treatment team to review treatment plan and goals for hospitalization. - Pending Discharge Pending Discharge Within 24 Hours: No Pending Discharge Within 48 Hours: No ICD10 Worksheet Patient Problems: Problems Problem Status Onset Abdominal pain Acute Chest pain Acute Insomnia Acute Psychosis Acute Ascites Acute Hyponatremia Acute 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
--- NOTE | 2018-09-15 12:50 | ASMTCMCOM ---
CM Note CM Note Notes: Pt reports he chest and abdomin hurting. Pt. stated she is "sensitive physically". Pt. reports sleeping "okay", and eating well. Pt. reports no issues with her current medications. Pt. stated she spoke with her SO, who stated there was a "miscommunication" about what SO said in ED. Pt. stated she feels fine returning home to [place], adding her father will arrive on Saturday morning. Pt. stated she plans on "spend some time with my parents". Pt. stated she thinks SO would benefit from counseling and speaking with pt's father. Pt. denied SI, HI, AVH and paranoia. Pt. presents as alert, guarded, nervous, lacking insight, good eye contact, and cooperative. Staff report pt. sleeping 9 hours and taking Ativan to help her sleep. Pt. attended the treatment team meeting this morning and was asked to leave. stated he will be placing the pt. on a STC. Date Signed: 09/15/2018 12:50 PM Electronically Signed By:Dee Brown
[2018-09-15] MEDS: THYROID 60 MG TAB PO SCH (16:58)
[2018-09-15] MEDS: ACETAMINOPHEN 325 MG TAB PO PRN (21:39)
--- NOTE | 2018-09-16 08:39 | SOAPPROG ---
SOAP Progress Note Assessment/Plan: Assessment: Bipolar I Disorder with mood congruent psychotic features. No improvement noted. (see subjective/objective note). Patient is not safe to discharge at this time as patient continues to exhibit signs of psychosis and chuy, and express psychosis and chuy symptoms. Patient requires continued inpatient care because of current psychosis and chuy, and requires inpatient level of care to stabilize in order to no longer be gravely disabled due to mental illness. Patient has no insight into current condition and refuses medications. Patient is unable to communicate her basic needs, and is unable to test reality. Patient exhibits inability to provide for herself, withdrawn from social interactions, currently shows inability to maintain any appropriate aspect of personal responsibility as an adult, patient becomes agitated and irritable easily and continues exhibited irritable behavior toward staff. Support system has inability to manage functional impairment at lower level of care. Patient could benefit from continued inpatient hospitalization for crisis stabilization, safety, and medication evaluation. Plan: 1. Psychotropic medications: Patient states she is not interested in scheduled psychotropic medications at this time. Patient states she is interested in continuing Ativan PRN for agitation, severe anxiety. 2. Review with patient informed consent and recommendations for psychotropic medication treatment listed below 3. Labs: A1c, lipid panel 4. Therapy: continue milieu and group therapy 5. Further investigation including gathering information from patients relatives and review of past case records to inform treatment plan. 6. Safety/Wellness plan and follow-up outpatient appointments to be established prior to discharge. Next steps are for patient to meet with care nurse rn to plan a safe discharge plan and establish outpatient services for ongoing treatment. 7. Confer with inpatient treatment team regarding treatment plan. 8. Psychosocial stressors addressed through health care coach 9. Legal status: [facility] 10. Consider discharge next week if patient is in stable condition, safe, and has a safe discharge plan. PSYCHOTROPIC MEDICATION TREATMENT INFORMED CONSENT and RECOMMENDATIONS: Review nature of condition, diagnosis, and prognosis. Review nature and purpose of psychotropic medication treatment. Review type of psychotropic medications being ordered. Review risk and benefits of psychotropic medication treatment. Review probable length of time patient will need to take medications. Review risk and benefits of not undergoing psychotropic medication treatment. Review alternative treatments to psychotropic medications. Review psychotropic medications contraindications, drug-drug interactions, side effects, and importance of reporting any side effects to a psychiatric provider or nurse during inpatient hospitalization, and upon discharge to patients psychiatric outpatient provider, primary care provider, or other health day care home mother. Review importance of asking a nurse, psychiatric provider, or primary care provider any questions or problems concerning the psychotropic medications. Verify patient understands the information that has been provided, and understands, accepts, and agrees to psychotropic medications. Review patients safety plan and importance of patient to report to staff while hospitalized if patient is ever a danger to self/others, or unable to care for self, and upon discharge, the importance for patient to contact [facility] or [facility], or go to the nearest emergency room, if patient is ever a danger to self/others, or unable to care for self. Recommend that upon discharge patient establish medication management treatment with a psychiatric provider, establishes routine therapy appointments, and follow-up with primary care provider. Verify patient understands and agrees to these recommendations. 09/16/18 08:38 Subjective: Following up with patient for evaluation of psychosis and safety. Patient reports, "The medication I took last night was horrible, I will never take that again. I do not need antipsychotic medications, I just need a sleep medication. I do not have any symptoms of psychosis, and I never have." Patient expresses the following psychiatric symptoms irritability. Objective: Vital Signs Temp Pulse Resp BP Pulse Ox 36.6 C 46 L 14 96/56 L 99 09/16/18 06:00 09/16/18 06:00 09/16/18 06:00 09/16/18 06:00 09/16/18 06:00 NURSING REPORT: Consulted with nursing for update on patients progress in treatment. Nurses report patient is not engaged in treatment, is not attending groups, slept 8 hours with Zyprexa Zydis 10 mg, expresses the following psychiatric symptoms: anxious, irritable; exhibits the following psychiatric symptoms: irritable, withdrawn from social interactions, tangential; is eating all meals, is agreeable to medications and taking as prescribed with no report of side effects, with no s/s of EPS/akathisia, and denies SI/HI, denies A/V hallucinations, and denies delusions. GEM TECHNICIAN: Patients father to arrive from [place], [place] tomorrow will visit unit for family meeting. MSE: The patient is a well-nourished female looking stated chronological age. Attire is appropriate dress is casual. Grooming status is inappropriate and disheveled. Ambulation is independent. Gait is normal and coordinated. Posture is normal. Eye contact is inappropriate and staring. Motor activity is appropriate with purposeful, organized, coordinated movements; with no involuntary movements. Attitude is uncooperative, defensive and guarded at times. Patient appears distractible and does not relate well to this interviewer. Language production is spontaneous. Rate is pressured. Latency of response is shortened with irritable tone. Articulation is clear. Patient reports mood as okay with expansive and inappropriate affect. Patients thought process is tangential, non-linear and illogical, with loose associations. Patient does not report suicidal/homicidal thoughts, ideas, or plans. Patient denies auditory, visual hallucinations. Patient reports somatic delusions. Patient does not appear to be attending to internal stimuli. Patients attention and concentration are poor. Patient is oriented to person, place, and time. Patients insight is poor. Patients judgment is poor. - Time Spent With Patient Time Spent With Patient: 15 minutes, met with patient individually. - Pending Discharge Pending Discharge Within 24 Hours: No Pending Discharge Within 48 Hours: No ICD10 Worksheet Patient Problems: Problems Problem Status Onset Abdominal pain Acute Chest pain Acute Insomnia Acute Psychosis Acute Ascites Acute Hyponatremia Acute 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
[2018-09-16] MEDS ORDERED: LORazepam 1 MG TAB PO PRN (11:22)
[2018-09-16] MEDS: THYROID 60 MG TAB PO SCH (14:24)
--- NOTE | 2018-09-17 08:49 | SOAPPROG ---
SOAP Progress Note Assessment/Plan: Assessment: Bipolar I Disorder with mood congruent psychotic features. R/O Delusional Disorder. R/O Schizoaffective Disorder, Bipolar Type. No improvement noted. ( see subjective/objective note). Patient could benefit from continued inpatient hospitalization for crisis stabilization, safety, and medication evaluation. Collateral needed from patient's father and partner to be gathered today to determine if patient is at baseline and is safe to discharge today. Plan: 1. Psychotropic medications: Patient states she is not interested in scheduled psychotropic medications at this time. Patient states she is interested in continuing Ativan PRN for agitation, severe anxiety. 2. Review with patient informed consent and recommendations for psychotropic medication treatment listed below 3. Labs: no additional labs at this time 4. Therapy: continue milieu and group therapy 5. Further investigation including gathering information from patients relatives and review of past case records to inform treatment plan. 6. Safety/Wellness plan and follow-up outpatient appointments to be established prior to discharge. Next steps are for patient to meet with career development director to plan a safe discharge plan and establish outpatient services for ongoing treatment. 7. Confer with inpatient treatment team regarding treatment plan. 8. Psychosocial stressors addressed through care administrative tech 9. Legal status: [facility] 10. Consider discharge next week if patient is in stable condition, safe, and has a safe discharge plan. PSYCHOTROPIC MEDICATION TREATMENT INFORMED CONSENT and RECOMMENDATIONS: Review nature of condition, diagnosis, and prognosis. Review nature and purpose of psychotropic medication treatment. Review type of psychotropic medications being ordered. Review risk and benefits of psychotropic medication treatment. Review probable length of time patient will need to take medications. Review risk and benefits of not undergoing psychotropic medication treatment. Review alternative treatments to psychotropic medications. Review psychotropic medications contraindications, drug-drug interactions, side effects, and importance of reporting any side effects to a psychiatric provider or nurse during inpatient hospitalization, and upon discharge to patients psychiatric outpatient provider, primary care provider, or other health care trainer. Review importance of asking a nurse, psychiatric provider, or primary care provider any questions or problems concerning the psychotropic medications. Verify patient understands the information that has been provided, and understands, accepts, and agrees to psychotropic medications. Review patients safety plan and importance of patient to report to staff while hospitalized if patient is ever a danger to self/others, or unable to care for self, and upon discharge, the importance for patient to contact [facility] or [facility], or go to the nearest emergency room, if patient is ever a danger to self/others, or unable to care for self. Recommend that upon discharge patient establish medication management treatment with a psychiatric provider, establishes routine therapy appointments, and follow-up with primary care provider. Verify patient understands and agrees to these recommendations. 09/17/18 08:49 Subjective: Following up with patient for evaluation of psychosis and safety. Patient reports, "I was wondering if my partner could be present during the family meeting today with my dad?" Patient reports she is hospitalized due to "insomnia," denies reasons for admission from [facility] evaluation, and states her partner plans to "clarify this today during family meeting as what he reported is not accurate" in [facility] evaluation. Patient expresses the following psychiatric symptoms anxious. Objective: Vital Signs Temp Pulse Resp BP Pulse Ox 36.9 C 54 L 16 101/52 L 97 09/17/18 06:00 09/17/18 06:00 09/17/18 06:00 09/17/18 06:00 09/17/18 06:00 NURSING REPORT: Consulted with nursing for update on patients progress in treatment. Nurses report patient is not engaged in treatment, is not attending groups, slept 8 hours, expresses the following psychiatric symptoms: anxious, irritable; exhibits the following psychiatric symptoms: irritable, withdrawn from social interactions, tangential, no insight regarding reason for hospitalization; is eating all meals, is agreeable to medications and taking as prescribed with no report of side effects, with no s/s of EPS/akathisia, and denies SI/HI, denies A/V hallucinations, and denies delusions. CLINICAL TECHNOLOGIST: Patients father to arrive from [place], [place] today will visit unit for family meeting. MSE: The patient is a well-nourished female looking stated chronological age. Attire is appropriate dress is casual. Grooming status is inappropriate and disheveled. Ambulation is independent. Gait is normal and coordinated. Posture is normal. Eye contact is appropriate. Motor activity is appropriate with purposeful, organized, coordinated movements; with no involuntary movements. Attitude is cooperative. Patient appears attentive and relates well to this interviewer. Language production is spontaneous. R/R/V are normal. Articulation is clear. Patient reports mood as okay with congruent and appropriate affect. Patients thought process is linear and logical. Patient does not report suicidal/homicidal thoughts, ideas, or plans. Patient denies auditory, visual hallucinations. Patient denies delusions. Patient does not appear to be attending to internal stimuli. Patients attention and concentration are poor. Patient is oriented to person, place, and time. Patients insight is poor. Patients judgment is poor. - Time Spent With Patient Time Spent With Patient: 15 minutes, met with patient individually. ICD10 Worksheet Patient Problems: Problems Problem Status Onset Abdominal pain Acute Chest pain Acute Insomnia Acute Psychosis Acute Ascites Acute Hyponatremia Acute 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
[2018-09-17] MEDS: THYROID 60 MG TAB PO SCH (10:46)
--- NOTE | 2018-09-17 14:00 | ASMTBHFAM ---
Notes Note: Notes: The patient has been diagnosed with a delusional disorder during inpatient treatment with [facility]. She has emphasized that she would like her significant other, Lalit, to be involved in her care. The patient does not participate in programming; she refuses medication, doesn't attend groups, nor is the patient active in the milieu. The patient initially participated in a family meeting with the clinical staff, her father, and significant other. The patient quickly became dysregulated. The patient agreed to start a medication as well as establish outpatient providers in [place]. The patient is projected to stay until September 19 or September 22. Date Signed: 09/17/2018 02:00 PM Electronically Signed By:Rochelle Alvares
[2018-09-17] MEDS ORDERED: traZODone 50 MG TAB PO SCH (21:00)
[2018-09-18 07:02] VITALS: BP 91/51
--- NOTE | 2018-09-18 08:10 | SOAPPROG ---
SOAP Progress Note Assessment/Plan: Assessment: Delusional Disorder, Insomnia. No improvement noted. (see subjective/objective note). Patient could benefit from continued inpatient hospitalization for crisis stabilization, safety, and medication evaluation. Awaiting establishment of outpatient services prior to discharge. Patient could benefit from family support and plan is for patient to return to [place], [place] with her dad who is currently staying in [place], [place] awaiting establishment of outpatient services then plans to pick-up patient and travel back to [place], [place] with patient with plans for patient to live with him and her mom. Plan: 1. Psychotropic medications: After reviewing options, risks, and benefits patient agrees to continue current medications. No other medication changes at this time as more time is needed to determine ongoing tolerability and efficacy. Plan is to continue to observe patient for response and side effects from medications, and ongoing monitoring and evaluation. 2. Review with patient informed consent and recommendations for psychotropic medication treatment listed below 3. Labs: no additional labs at this time 4. Therapy: continue milieu and group therapy 5. Further investigation including gathering information from patients relatives and review of past case records to inform treatment plan. 6. Safety/Wellness plan and follow-up outpatient appointments to be established prior to discharge. Next steps are for patient to meet with primary care md to plan a safe discharge plan and establish outpatient services for ongoing treatment. 7. Confer with inpatient treatment team regarding treatment plan. 8. Psychosocial stressors addressed through progressive care nurse 9. Legal status: [facility] [place] 10. Consider discharge next week if patient is in stable condition, safe, and has a safe discharge plan. PSYCHOTROPIC MEDICATION TREATMENT INFORMED CONSENT and RECOMMENDATIONS: Review nature of condition, diagnosis, and prognosis. Review nature and purpose of psychotropic medication treatment. Review type of psychotropic medications being ordered. Review risk and benefits of psychotropic medication treatment. Review probable length of time patient will need to take medications. Review risk and benefits of not undergoing psychotropic medication treatment. Review alternative treatments to psychotropic medications. Review psychotropic medications contraindications, drug-drug interactions, side effects, and importance of reporting any side effects to a psychiatric provider or nurse during inpatient hospitalization, and upon discharge to patients psychiatric outpatient provider, primary care provider, or other health critical care rn. Review importance of asking a nurse, psychiatric provider, or primary care provider any questions or problems concerning the psychotropic medications. Verify patient understands the information that has been provided, and understands, accepts, and agrees to psychotropic medications. Review patients safety plan and importance of patient to report to staff while hospitalized if patient is ever a danger to self/others, or unable to care for self, and upon discharge, the importance for patient to contact [facility] or [facility], or go to the nearest emergency room, if patient is ever a danger to self/others, or unable to care for self. Recommend that upon discharge patient establish medication management treatment with a psychiatric provider, establishes routine therapy appointments, and follow-up with primary care provider. Verify patient understands and agrees to these recommendations. 09/18/18 08:07 Subjective: Following up with patient for evaluation of psychosis and safety. Patient reports, "I slept okay last night, maybe the medication worked. I feel rested today." Patient reports no side effects from Trazodone 50 mg po QHS, and agrees to continue this medication for insomnia. Patient expresses no symptoms of chuy. Patient agrees with plan to return to [place], [place] with her dad after discharge and live with her dad and mom in [place], [place]. Patient agrees to follow- up with outpatient services after discharge in [place], [place]. Objective: Vital Signs Temp Pulse Resp BP Pulse Ox 35.5 C L 56 L 16 91/51 L 96 09/18/18 06:59 09/18/18 06:59 09/18/18 06:59 09/18/18 06:59 09/18/18 06:59 NURSING REPORT: Consulted with nursing for update on patients progress in treatment. Nurses report patient is not engaged in treatment, is not attending groups, slept 6 hours, expresses the following psychiatric symptoms: anxious, irritable; exhibits the following psychiatric symptoms: irritable, withdrawn from social interactions, no insight regarding reason for hospitalization; is eating all meals, is attending to ADLs, is agreeable to medications and taking as prescribed with no report of side effects, with no s/s of EPS/akathisia, and denies SI/HI, denies A/V hallucinations, and denies delusions. HOME WORKER: This DIGITAL WATCH ASSEMBLER and CC met with patient for patient to sign WILLIE for mental health service in [place], [place]. CC currently working to set-up mental health services for patient in [place], [place]. MSE: The patient is a well-nourished female looking stated chronological age. Attire is appropriate dress is casual. Grooming status is inappropriate and disheveled. Ambulation is independent. Gait is normal and coordinated. Posture is normal. Eye contact is appropriate. Motor activity is appropriate with purposeful, organized, coordinated movements; with no involuntary movements. Attitude is fairly cooperative. Patient appears attentive and relates well to this interviewer. Language production is spontaneous. R/R/V are normal. Articulation is clear with irritable tone. Patient reports mood as okay with congruent and appropriate affect. Patients thought process is linear and logical. Patient does not report suicidal/homicidal thoughts, ideas , or plans. Patient denies auditory, visual hallucinations. Patient denies delusions. Patient does not appear to be attending to internal stimuli. Patients attention and concentration are poor. Patient is oriented to person, place, and time. Patients insight is poor. Patients judgment is poor. - Time Spent With Patient Time Spent With Patient: 15 minutes, this DIGITAL WATCH ASSEMBLER and CC met with patient. - Pending Discharge Pending Discharge Within 24 Hours: No Pending Discharge Within 48 Hours: No ICD10 Worksheet Patient Problems: Problems Problem Status Onset Abdominal pain Acute Chest pain Acute Insomnia Acute Psychosis Acute Ascites Acute Hyponatremia Acute 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
[2018-09-18] MEDS: THYROID 60 MG TAB PO SCH ×2 (08:47→12:03)
[2018-09-18] MEDS: ACETAMINOPHEN 325 MG TAB PO PRN (08:47)
--- NOTE | 2018-09-18 11:25 | BDS ---
REASON FOR ADMISSION: Patient presented to the emergency room on 09/12/2018. Patient has a history of erratic behavior and presented to the emergency room with chest pain, abdominal pain, insomnia. Patient presented hysterical on arrival, stated that somebody had punctured her heart and that she has ripped a vein in her lower left abdomen, causing her to bleed internally. Several tests were completed and no findings. Patient continued to have bizarre behavior and a formal behavioral health consult was initiated. Patient was placed on an M1 hold due to psychosis and concern for safety. Patient reportedly has a history of bizarre episodic periods of psychotic thinking and paranoid ideation in the past. Patient does have a history of psychiatric admissions. Patient was admitted for psychiatric treatment in 2014. Patient was very defensive and denied any concerns for her psychiatric health. Patient was admitted involuntarily on an M1 hold due to being gravely disabled. Patient was admitted for safety, crisis stabilization and medication management. ADMITTING DIAGNOSES: 1. Unspecified psychosis. 2. Rule out delusional disorder. 3. Rule out schizoaffective disorder, bipolar type. 4. Rule out bipolar 1 disorder with mood congruent psychotic features. 5. Insomnia. ADMISSION PHYSICAL EXAM: Patient was seen for history and physical on 2018, in the emergency room. Please refer ED provider report. Patient was seen for medical clearance for inpatient psychiatric hospitalization and treatment. Patient was medically cleared for inpatient psychiatric hospitalization and treatment. ADMISSION LABS: 1. CBC within normal limits, except eosinophils were low at 0.2, absolute eosinophils were low at 0.02. 2. BMP within normal limits, except carbon dioxide was low at 21. 3. Hemoglobin A1c within normal limits at 4.7. 4. Liver function within normal limits, except total bilirubin was elevated at 1.8, unconjugated bilirubin was elevated at 1.6. 5. Lipid panel within normal limits, except LDL cholesterol calculated was elevated at 109. 6. Lipase within normal limits at 87. 7. TSH within normal limits at 2.970. 8. Beta hCG qualitative test negative. 9. Urines within normal limits, except urine ketones were elevated at 2+, urine blood was elevated at 3+, urine RBC elevated at 50-182. 10. Toxicology screen negative for all substances screened and negative for ethyl alcohol. MAJOR PROCEDURES OR TESTS: None. HOSPITAL COURSE: The most prominent symptoms and behaviors while the patient was here were reports of somatic delusions. Patient had no insight into her hospitalization. Patient denied any psychiatric illness. Patient did report history of insomnia. Patient did sleep 6-8 hours a night while hospitalized. Patient was also isolated from social interactions and spent the majority of her time in her room. Patient did come out for meals. Patient became easily irritable and agitated when discussing her delusions and psychiatric condition. Zyprexa Zydis 10 mg p.o. q.h.s. was started to target psychosis symptoms, notably delusions. Patient reported that she felt "sick" after taking the medication and reported that she no longer wanted to take the medication. The medication was discontinued. Trazodone 50 mg p.o. q.h.s. was started to target insomnia symptoms, was tolerated with no report of side effects. Patient reported she was unsure if the medication "worked" and stated she no longer wanted to take the medication and stated she did not want a prescription for trazodone at time of discharge. Patient reported then that she was no longer interested in trials of psychotropic medications for her delusions or for insomnia. During the course of the patient's hospitalization, patient's diagnosis was clarified and patient was diagnosed with delusional disorder and insomnia. Patient has improved considerably with no other signs of psychiatric symptoms and no psychiatric symptoms expressed at time of discharge. Patient reports she has improved since admission, states to be in stable condition, feels safe to discharge and she contracts for safety. Patient's response to treatment was good. There were no adverse or unexpected results of treatment. The patient was safe throughout her stay, active in treatment, engaged in groups , and was appropriate with staff and other patients. Patient met with the treatment team prior to discharge to assess readiness to discharge and review discharge plan. The treatment team consensus is the patient is in stable condition, has a safe discharge plan, and is ready to discharge today. CONDITION ON DISCHARGE: Patient is in stable condition, is not a danger to herself or others, is not gravely disabled due to a mental illness. Patient is no longer in need of inpatient level of care and can safely and effectively be treated within the community. Mental Status Exam: The patient is a well- nourished female looking stated chronological age. Attire is appropriate. Dress is casual, neat and clean. Grooming status is appropriate, clean. Ambulation is independent. Gait is normal and coordinated. Posture is normal and relaxed. Eye contact is appropriate and adequate. Motor activity is appropriate with purposeful, organized, coordinated movements with no involuntary movements noted. Attitude is fairly cooperative, defensive and guarded at times. Patient appears fairly attentive and relates fairly well to this interviewer. Language production is spontaneous. Rate, rhythm and volume are normal. Articulation is clear. Patient reports mood as "okay" with adequately ranged and congruent affect. The patient's thought process is linear and logical with no loose associations, tangential thought, thought blocking, concrete thinking or any other signs of formal thought disorder. Patient does not report suicidal/homicidal thoughts, ideas or plans. Patient denies auditory or visual hallucinations. Patient denies delusions. Patient does not appear to be attending to internal stimuli. Patient is oriented to person, place, time. Patient has no orientation to situation. Patient's attention and concentration are fair. Patient's insight and judgment are poor. There is no evidence of gross cognitive dysfunction at any point during the interview and no evidence of apparent dysfunction in recent or remote memory noted. DISCHARGE DIAGNOSES: Based on the patient's history and current presentation, patient's diagnoses are: 1. Delusional disorder. 2. Insomnia. CURRENT MEDICATIONS: After reviewing options, risks and benefits with the patient, patient agrees to continue: Thyroid 60 mg p.o. daily at 1000. Patient reports she is not interested in psychotropic medications at time of discharge and reports she will follow up with outpatient services for ongoing medication evaluation and management. Medication options were discussed with the patient throughout course of hospitalization, and informed consent was provided. DISPOSITION: Patient left hospital independently and voluntarily with her father and plans to return to [place], [place] with her father and reside with her mother and father in [place], [place]. FOLLOWUP: referral coordinator reports the appropriate outpatient follow-up services have been established and outpatient appointments have been scheduled. The patient received written instructions with times and dates of outpatient follow-up appointments. The following follow-up recommendations were provided to the patient at discharge: Continue psychotropic medications as prescribed and attend appointments as scheduled. Report any side effects to a psychiatric outpatient provider, a primary care provider, or other health career representative. Address any questions or problems concerning the psychotropic medications with a psychiatric outpatient provider, a primary care provider, or other health career representative. Contact [facility] or [facility], or go to the nearest emergency room, if you are ever a danger to yourself/others, or unable to care for yourself. As soon as possible, establish a routine medication management treatment with a psychiatric provider, establish routine therapy appointments, and follow-up with a primary care provider. LEGAL COURSE: Patient was admitted on an M1 hold for involuntary inpatient psychiatric hospitalization. Patient was then placed on a short-term certification. Patient was discharged today independently and voluntarily and her short-term certification was terminated at time of discharge. ATTITUDE AT TIME OF DISCHARGE: The patients attitude was positive at time of discharge, and patient reports looking forward to discharging today. The patient reports she feels safe to discharge, is no longer a danger to herself or others, is in stable condition, and contracts for safety. Patient states she will continue medications as prescribed, and establish medication management treatment with an outpatient provider after discharge. Patient reports she understands the information that has been provided to her, and she understands, accepts, and agrees to psychotropic medications. Patient describes internal protective factors as the coping skills she has learned while hospitalized here, and she plans to continue to practice these coping skills after discharge. LABS AND STUDIES: There were no pending labs or studies at time of discharge. ADVANCE DIRECTIVES: There were no advance directives on file, and patient was Full Code during this hospitalization. The following psychotropic medication treatment informed consent and recommendations were provided to the patient at time of discharge. Patient reports she understands, accepts, and agrees to the information that has been provided. PSYCHOTROPIC MEDICATION TREATMENT INFORMED CONSENT and RECOMMENDATIONS: Review nature of condition, diagnosis, and prognosis. Review nature and purpose of psychotropic medication treatment. Review type of psychotropic medications being prescribed. Review risk and benefits of psychotropic medication treatment. Review probable length of time will need to take medications. Review risk and benefits of not undergoing psychotropic medication treatment. Review alternative treatments to psychotropic medications. Review psychotropic medications contraindications, side effects, and importance of reporting any side effects to a psychiatric provider, primary care provider, or other health career representative. Review importance of her asking a psychiatric provider or primary care provider any questions or problems concerning the psychotropic medications. Review importance of reporting to a psychiatric provider, primary care provider, or other health career representative if she plans to or becomes . Review safety plan and the importance to contact [facility] or [facility] , or go to the nearest emergency room, if ever a danger to yourself/others, or unable to care for yourself. Recommend upon discharge to establish routine medication management treatment with a psychiatric provider, establish routine therapy appointments, and follow-up with a primary care provider. Verify patient understands, accepts, and agrees to the information that has been provided. /[id number]/MODL MTDD
--- NOTE | 2018-09-18 11:59 | ASMTBHDC ---
Notes Note: Notes: CC confirmed client's discharge follow up care in [facility]. Additionally, faxed over [facility] ppw [facility] at ([phone]) for them to follow up with client. Follow up with: [facility] ([facility]) [address], [facility] [address] [place], [address] Intake Appt: September 23 (09/23/18) at 11:30am with Peggy Erickson at (the above location). Date Signed: 09/18/2018 11:59 AM Electronically Signed By:Soham Brewer
== END 2018-09-18 12:25 | disposition home or self-care (01) | DRG 885 ==
LOC: BBEH 18:40
PROVIDERS: ADMIT Registered Nurse; ATTEND Registered Nurse
DX: F22 Delusional disorders (principal); G47.00 Insomnia, unspecified; E03.9 Hypothyroidism, unspecified; G43.909 Migraine, unspecified, not intractable, without status migrainosus
CPT/HCPCS: 80307; 84484-ER; 96374; G0480; J2060

== ENCOUNTER 2019-01-13 21:20 | Emergency (ER) | payer OTHER ==
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
[2019-01-13] MEDS ORDERED: IBUPROFEN 800 MG TAB PO ONE (21:28)
[2019-01-13 21:30] VITALS: BP 116/69
== END 2019-01-13 21:30 | disposition home or self-care (01) ==
DX: S16.1XXA Strain of muscle, fascia and tendon at neck level, initial encounter (principal); X50.9XXA Other and unspecified overexertion or strenuous movements or postures, initial encounter